=== PATIENT | female | born 1965 | race Caucasian/White ===

== ENCOUNTER 2017-02-13 07:56 | Inpatient (IN) | payer OTHER ==
--- NOTE | ~2017-02-13 | OR ---
Unit #: [id number] #: [id number] Patient: ELVIRA GARVIN [id number] [address] [address] [id number] I MR#: [id number] NAME: ELVIRA GARVIN ROOM: 331 Date of Procedure: 02/13/2017 Admission Date: 02/13/2017 Surgeon: Arnie Marie M.D. : 1965 Attending Physician: Mike Arnold M.D. OPERATIVE REPORT PROCEDURE PERFORMED Esophagogastroduodenoscopy with biopsy. INDICATIONS The patient presented with hematemesis, anemia of acute blood loss. MEDICATIONS Monitored anesthesia. POSTOPERATIVE FINDINGS 1. Severe ulcerative esophagitis . 2. Small gastric cardia ulcer. 3. Biopsies taken in the antrum and body to look for H pylori. 4. Normal duodenum and distal duodenum. PLAN Continue PPI therapy. Watch for . DESCRIPTION OF PROCEDURE The patient was explained of the procedure, risks, and benefits along with the risks and benefits of anesthesia. She was brought to the endoscopy room. Propofol anesthesia was given. Bite block was placed. The scope was passed down the mouth into the esophagus, stomach, duodenum, and distal duodenum. Findings as described. Biopsies taken. Gently, I pulled it out of the patient's mouth. She tolerated it well. No major complications were seen. Dictated by... Charly Kowalski/beverly TD: 03/15/2017 02:19 JOB #: [id number] Unit #: [id number] #: [id number] Patient: ELVIRA GARVIN OPERATIVE REPORT Page 1 of 1 X Arnie Marie MD X PROCEDURE OPERATIVE NOTE
--- NOTE | ~2017-02-13 | EKG ---
PATIENT: ELVIRA GARVIN UNIT #: [id number] Ventricular Rate: 142 BPM Atrial Rate: 142 BPM P-R Interval: 112 ms QRS Duration: 68 ms Q-T Interval: 334 ms QTC Calculation(Bezet): 513 ms Calculated R [place]: 82 degrees Calculated T [place]: 70 degrees Diagnosis Line: Sinus tachycardia Diagnosis Line: Otherwise normal ECG Diagnosis Line: When compared with ECG of 13-DEC-2016 11:40, Diagnosis Line: No significant change was found Diagnosis Line: Confirmed by ARIS ORDAZ MD ([id number]) on Diagnosis Line: 02/13/2017 11:28:34 AM INTERPRETING MD: SUSHMA PAUL
--- NOTE | ~2017-02-13 | CR72 ---
[facility] A Service of [facility] RADIOLOGY TEXT RESULTS PATIENT: ELVIRA GARVIN LOCATION: [facility] 331-01 : [birth year] UNIT #: [id number] AGE: [address]: Alexa Singh MD SEX: F ORDER DR: [id number] [facility] [address] [facility]. [place], [place] [address] [id number] I MR#: [id number] #: [id number] NAME: ELVIRA GARVIN : 1965 SEX: F STUDY DATE/TIME: 02/13/2017 14:50 UNIT: [address] ROOM: [facility] STUDY DESCRIPTION: CR Chest Single View Portable Attending Physician: Alexa Singh M.D. Ordering Physician: Alpesh Noyola M.D. Primary Care Physician: No Primary Care Physician MEDICAL IMAGING REPORT This report is preliminary unless electronic signature is present EXAM Single view chest. DATE OF EXAM 02/13/2017 INDICATION Shortness of air and alcohol withdraw. Coffee-grounds emesis for 1 day. Positive smoking history. FINDINGS Single portable AP view of the chest compared to 12/13/2016. Heart and mediastinal contours normal. Lungs are clear. IMPRESSION Normal chest radiograph. Dictated by... Darren Montero M.D. THIS IS AN ELECTRONICALLY VERIFIED REPORT Darren Montero M.D. at 02/14/2017 8:38 AM POORNIMA/tatyana TD: 02/13/2017 21:25 JOB #: [id number] MEDICAL IMAGING REPORT COPY
--- NOTE | ~2017-02-13 | HP ---
Unit #: [id number] #: [id number] Patient: ELVIRA GARVIN [id number] [address] [address] [id number] I MR#: [id number] NAME: ELVIRA GARVIN ROOM: 14890 Age: 51 Sex: F Admission Date: 02/13/2017 : 1965 Attending Physician: Alexa Singh M.D. Primary Care Physician: No Primary Care Physician HISTORY AND PHYSICAL CHIEF COMPLAINT Alcohol withdrawal and coffee-ground emesis. HISTORY OF PRESENT ILLNESS The patient is a 51-year-old female with past medical history of alcohol abuse, pancreatitis, GERD, bipolar disorder who presented to the emergency department for evaluation of the above. History is obtained from discussion with ER staff as well as chart review due to the patient having just received 2 mg of Ativan and being unable to add much to the history. Apparently, the patient stopped drinking "cold turkey" about three days ago. She has since had nausea, vomiting with coffee-ground emesis per EMS. At the time of my evaluation, the patient does report abdominal pain. She describes it as "achy." It is in the upper abdomen. There are no exacerbating or alleviating factors. She denies any chest pain, no fever. Upon arrival in the emergency department, the patient's pulse and blood pressure were 149 and 124/74 respectively. She was noted to be somewhat anxious. She was given a total of 4 mg of Ativan as well as 3 L of normal saline and 8 mg of Zofran. She also received 40 mg of Protonix. Laboratory is notable for sodium of 125, BUN and creatinine 66 and 1.7 respectively. Hemoglobin is 11.9. She is being admitted to [facility] for evaluation and further treatment. PAST MEDICAL HISTORY 1. Admission to [facility], December 13 through December 18, 2016 for alcohol withdrawal and GI bleed. She underwent EGD on December 18, 2016 that showed severe ulcerative esophagitis circumferentially with no varices. 2. Pancreatitis. 3. GERD. 4. Bipolar disorder. PAST SURGICAL HISTORY 1. EGD. 2. Hip replacement. SOCIAL HISTORY The patient drinks a pint daily. Her last drink was three days prior to admission. She is a smoker, half pack cigarettes daily. She denies illicit drug use. FAMILY HISTORY Unit #: [id number] #: [id number] Patient: ELVIRA GARVIN Currently unobtainable from the patient due to her being somewhat lethargic. ALLERGIES No known allergies. HOME MEDICATIONS 1. Paxil. 2. Buspirone. 3. Gabapentin. 4. Prilosec. Home medications will need to be reviewed and verified. REVIEW OF SYSTEMS A complete review of systems is negative except as indicated in the HPI. DIAGNOSTIC STUDIES LABORATORY: Complete blood count notable for white blood cell count of 14.1, hemoglobin and hematocrit 11.9 and 36.8 respectively. Comprehensive metabolic panel notable for sodium of 125, chloride 71, bicarbonate 33, glucose 159, BUN and creatinine 66 and 1.7 respectively. AST 69. Lipase 12, amylase 19. INR 1. CARDIOVASCULAR: EKG shows sinus tachycardia with rate of 142 beats per minute. PHYSICAL EXAMINATION VITAL SIGNS: Temperature is 99.6, pulse 149, respirations 17, blood pressure 124/74, oxygen saturation is 94% on room air. GENERAL: The patient is a female who is lethargic but opens eyes to voice. HEENT: The head is atraumatic. Mucous membranes are dry. NECK: Supple. Trachea is midline. CARDIOVASCULAR: Tachycardic in the one teens. LUNGS: Clear to auscultation bilaterally with no increased work of breathing. ABDOMEN: Soft, nontender with bowel sounds present in all four quadrants. EXTREMITIES: Nontender with no pedal edema. NEUROLOGIC: The patient is lethargic. She opens eyes to physical stimuli. She is currently oriented to person only; however, initially prior to Ativan, she was oriented x3. She is moving all extremities. PSYCHIATRIC: The patient is cooperative. SKIN: Skin of examined areas is warm. ASSESSMENT The patient is a 51-year-old female: 1. Alcohol withdrawal: The patient received 4 mg of Ativan in the emergency department. 2. Hyponatremia, likely secondary to alcohol. The patient's sodium has been as low as 124 on December 14, 2016. It is 125 today. 3. Acute kidney injury: The patient's creatinine has been as high as 2 on December 13, 2016. It is 1.7 today and was 0.6 on December 16, 2016. 4. Nausea and vomiting with coffee-ground emesis per EMS. Hemoglobin is 11.9. The patient did undergo esophagogastroduodenoscopy on December 18, 2016, that showed esophagitis but no varices. She received 40 mg of Protonix in the emergency department. 5. Leukocytosis with no obvious source of infection, although there is Unit #: [id number] #: [id number] Patient: ELVIRA GARVIN not a urinalysis or chest x-ray for review. 6. History of pancreatitis. 7. Gastroesophageal reflux disease. 8. Bipolar disorder. 9. Tobacco abuse. PLAN 1. Admit to intermediate level. 2. NPO until more awake and passes bedside swallow then clear liquids only. 3. Alcohol withdrawal protocol. 4. Librium 25 mg p.o. q.6 hours to start when awake. 5. fleet manager/dispatch and social work consult regarding alcohol abuse. 6. Urine sodium and osmolality. 7. Serum osmolality. 8. Repeat BMP later this afternoon to followup hyponatremia. 9. Chest x-ray for further evaluation of hyponatremia and leukocytosis. 10. Urinalysis with culture and sensitivity. 11. Urine tox screen. 12. Hemoccult stool. 13. Hemoglobin and hematocrit q.6 hours. 14. Protonix. 15. Serial cardiac enzymes. 16. Neuro checks. 17. Repeat labs in the morning. 18. Sequential compression devices for deep venous thrombosis prophylaxis. 19. Additional workup and consultants based on above. Dictated by Charly Reeves TD: 02/13/2017 15:52 JOB #: [id number] HISTORY AND PHYSICAL X Alexa Singh MD X HISTORY AND PHYSICAL
--- NOTE | ~2017-02-13 | DS ---
Unit #: [id number] #: [id number] Patient: ELVIRA GARVIN [id number] [address] [place], [place] [address] [id number] I MR#: [id number] NAME: ELVIRA GARVIN ROOM: 331 Age: 51 Sex: F Admission Date: 02/13/2017 : 1965 Discharge Date: 02/16/2017 Attending Physician: Mike Arnold M.D. DISCHARGE SUMMARY REASON FOR ADMISSION Alcohol withdrawal/coffee-ground emesis. HISTORY OF PRESENT ILLNESS/HOSPITAL COURSE The patient is a 51-year-old female with underlying history of alcohol abuse, pancreatitis, current bipolar disorder, who presented secondary to above. Please see H and P for complete details. In regard to coffee ground emesis, consultation was placed to Dr. Marie of [facility], who followed the patient through her hospital course. Upper GI endoscopy was performed, which did reveal severe ulcerative esophagitis, but there was no Karie-De Leon tear, which was noted. Gastritis was also noted. PPI therapy was recommended at time of discharge. Throughout her hospital course, she has remained otherwise well. We did place her initially on CIWA protocol, which was gradually discontinued and she has been maintained on p.o. Librium. She has exhibited no acute DTs while she was here. Her hemoglobin currently stands at 11.4, which likely is representing her baseline. She does have decreased MCV at 82. H pylori screen was negative. Blood cultures did not show any bacterial growth through hospital stay. Urine culture was also performed that did not yield any bacterial growth as well. From medical standpoint, she is currently stable. She has been tolerating diet well without difficulty. She is ambulatory and she will be discharged home in improved stable condition. She is well aware of the long-term detrimental effects of alcohol. She states that she will try to decrease as an outpatient. Appropriate supportive care was given while she was here. FINAL DISCHARGE DIAGNOSES 1. Emesis likely secondary to acute alcohol intoxication. 2. Ulcerative esophagitis. 3. Alcohol abuse. 4. Hyponatremia on admission, now resolved. 5. Acute kidney injury on admission, now resolved. 6. Iron deficiency anemia. 7. Prior history of pancreatitis likely secondary to alcohol abuse. 8. Prior history of bipolar disorder. 9. Ongoing tobacco abuse. FINAL DISCHARGE MEDICATIONS Unit #: [id number] #: [id number] Patient: ELVIRA GARVIN Paxil 40 mg p.o. daily, Abilify 5 mg p.o. daily, Librium 25 mg p.o. q.6 x5 days, simvastatin 20 mg p.o. q.h.s., multivitamin daily, Protonix 40 mg p.o. daily. DISCHARGE CONDITION Stable. DISCHARGE DISPOSITION Home. PROGNOSIS Long-term prognosis guarded secondary to ongoing alcohol abuse as well as tobacco abuse. Dictated by... Charly Hidalgo/beverly TD: 02/17/2017 00:38 JOB #: [id number] DISCHARGE SUMMARY X Mike Arnold MD X DISCHARGE SUMMARY
[~2017-02-13 07:56] MED LIST: ABILIFY5 MG PO; BUSPAR15 M2 PO; MAG-OXIDE400 MG PO; MINIPRESS1 MG PO; MULTI-VITAMIN1 EAC1 PO; NEURONTIN800 MG PO; OMEPRAZOLE40 M1 PO; PAXIL40 MG PO; ZOCOR20 MG PO
[2017-02-13 08:29] LABS: BASOPHIL% 0.2 % (0-2.5); HEMATOCRIT 36.8 % (35.0-45.0); HEMOGLOBIN 11.9 gm/dL (12.0-16.0); LYMPHOCYTE# 1.3 X10e3 (1.0-3.5); MEAN CELL VOLUME 76.7 FL (83-96); MEAN CORPUSCULAR HEMOGLOBIN 24.8 PG (28-34); MEAN CORPUSCULAR HGB CONC 32.4 g/dL (30-36); MEAN PLATELET VOLUME 8.9 FL (6.5-11.5); MONOCYTE# 0.7 X10e3 (0-1.0); MONOCYTE% 4.9 % (3.0-12.0); NEUTROPHIL# 12.1 X10e3 (1.5-7.1); NEUTROPHIL% 85.9 % (40-75); PLATELET COUNT 232 X10e3 (140-420); RED CELL DISTRIBUTION WIDTH 18.4 % (11.0-15.5); WHITE BLOOD COUNT 14.1 X10e3 (4.0-10.5)
[2017-02-13 08:30] LABS: DIFF IND NO
[2017-02-13 08:56] LABS: ALBUMIN SERUM 4.9 g/dL (3.5-5.0); BILIRUBIN, DIRECT 0.2 mg/dL (0.0-0.2); BILIRUBIN,TOTAL 1.2 mg/dL (0.2-2.0); BUN/CREATININE RATIO 38.82; CALCIUM SERUM 8.9 mg/dL (8.4-10.2); CREATININE SERUM 1.7 mg/dL (0.6-1.4); POTASSIUM 3.7 mmol/L (3.5-5.1); PROTEIN TOTAL SERUM 8.7 g/dL (6.0-8.3)
[2017-02-13 09:01] LABS: PARTIAL THROMBOPLASTIN TIME 20.6 SECONDS (23.5-31.3); PROTHROMBIN TIME (PATIENT) 10.1 SECONDS (9.6-11.5)
[2017-02-13] MEDS ORDERED: BUSPAR30 MG PO (15:11)
[2017-02-13] MEDS ORDERED: NEURONTIN800 MG PO (15:12)
[2017-02-13] MEDS ORDERED: PAROXETINE HCL20 MG PO (15:13)
[2017-02-13] MEDS ORDERED: DESYREL50 MG PO (15:14)
[2017-02-13] MEDS ORDERED: SIMVASTATIN20 MG PO (15:14)
[2017-02-13] MEDS ORDERED: MINIPRESS1 MG PO (15:15)
[2017-02-13 15:52] LABS: MAGNESIUM 1.7 mg/dL (1.6-3.0)
[2017-02-13 15:54] LABS: THYROID STIMULATING HORMONE 1.12 uIU/ml (0.34-5.60)
[2017-02-13 16:01] LABS: %MB 1.6 % (0.0-4.0); FREE THYROXIN (T4) 0.95 ng/dL (0.58-1.64); MB 12.4 ng/ml
[2017-02-13 16:02] LABS: URINE SOURCE CLEAN CATCH
[2017-02-13 16:06] LABS: URINE APPEARANCE CLEAR; URINE BILIRUBIN NEG (NEG); URINE BLOOD TRACE (NEG); URINE COLOR YELLOW; URINE GLUCOSE NEG (NEG); URINE KETONE 1+ (NEG); URINE LEUKOCYTE ESTERASE 1+ (NEG); URINE NITRATE NEG (NEG); URINE PROTEIN NEG (NEG); URINE SPECIFIC GRAVITY 1.016 (1.003-1.035); URINE UROBILINOGEN 0.2 MG/DL (NEG)
[2017-02-13 16:09] LABS: CULTURE INDICATED? YES; URINE BACTERIA AUWI NEG (NEGATIVE); URINE SQUAMOUS EPITHELIAL CELL OCC /[HPF]
[2017-02-13 16:39] LABS: AMPHETAMINE NEG (NEG); BARBITURATES NEG (NEG); BENZODIAZEPINES NEG (NEG); COCAINE NEG (NEG); MARIJUANA NEG (NEG); OPIATES NEG (NEG); TRICYCLIC ANTIDEPRESSANTS NEG (NEG); U METHADONE NEG (NEG)
[2017-02-13 19:20] LABS: HEMATOCRIT 32.2 % (35.0-45.0)
[2017-02-13 19:21] LABS: HEMOGLOBIN 9.9 gm/dL (12.0-16.0)
[2017-02-13 19:36] LABS: BUN/CREATININE RATIO 36.36; CALCIUM SERUM 7.2 mg/dL (8.4-10.2); CREATININE SERUM 1.1 mg/dL (0.6-1.4); GLOM FILT RATE Estimated 56.1 mL/min (>60); POTASSIUM 3.3 mmol/L (3.5-5.1)
[2017-02-13 19:59] LABS: %MB 1.5 % (0.0-4.0); MB 10.2 ng/ml
[2017-02-14 06:50] LABS: HEMATOCRIT 25.4 % (35.0-45.0); HEMOGLOBIN 8.1 gm/dL (12.0-16.0)
[2017-02-14 07:56] LABS: %MB 0.9 % (0.0-4.0); MB 3.9 ng/ml
[2017-02-14 14:14] LABS: HEMATOCRIT 23.7 % (35.0-45.0); HEMOGLOBIN 7.5 gm/dL (12.0-16.0)
[2017-02-15 03:36] LABS: HEMATOCRIT 32.8 % (35.0-45.0)
[2017-02-15 03:37] LABS: HEMOGLOBIN 10.5 gm/dL (12.0-16.0)
[2017-02-15 04:03] LABS: ALBUMIN SERUM 3.3 g/dL (3.5-5.0); ALKALINE PHOSPHATASE 53 U/L (32-92); ALT (SGPT) 23 U/L (10-40); AST (SGOT) 47 U/L (10-42); BILIRUBIN,TOTAL 1.2 mg/dL (0.2-2.0); BLOOD UREA NITROGEN 7 mg/dL (9-23); CARBON DIOXIDE 28 mmol/L (22-31); CHLORIDE 101 mmol/L (100-111); CREATININE SERUM 0.5 mg/dL (0.6-1.4); GLOM FILT RATE Estimated ABOVE60 mL/min (>60); GLUCOSE FASTING 105 mg/dL (70-110); PROTEIN TOTAL SERUM 5.9 g/dL (6.0-8.3); SODIUM 134 mmol/L (135-145)
[2017-02-15 04:06] LABS: POTASSIUM 2.9 mmol/L (3.5-5.1)
[2017-02-15 08:34] LABS: HEMATOCRIT 32.9 % (35.0-45.0); HEMOGLOBIN 10.4 gm/dL (12.0-16.0)
[2017-02-15 14:27] LABS: HEMATOCRIT 34.4 % (35.0-45.0); HEMOGLOBIN 10.9 gm/dL (12.0-16.0)
[2017-02-15 18:35] LABS: HEMATOCRIT 36.8 % (35.0-45.0); HEMOGLOBIN 11.4 gm/dL (12.0-16.0)
[2017-02-15] MEDS ORDERED: PAXIL40 MG PO (22:58)
[2017-02-15] MEDS ORDERED: ABILIFY5 MG PO (22:59)
[2017-02-16 07:52] LABS: HEMOGLOBIN 11.8 gm/dL (12.0-16.0); MEAN CELL VOLUME 82.4 FL (83-96); MEAN CORPUSCULAR HEMOGLOBIN 26.2 PG (28-34); MEAN CORPUSCULAR HGB CONC 31.8 g/dL (30-36); MEAN PLATELET VOLUME 9.5 FL (6.5-11.5); RED BLOOD COUNT 4.5 X10e (3.90-5.30); RED CELL DISTRIBUTION WIDTH 17.5 % (11.0-15.5); WHITE BLOOD COUNT 6.5 X10e3 (4.0-10.5)
[2017-02-16 08:07] LABS: ALBUMIN SERUM 3.5 g/dL (3.5-5.0); ALKALINE PHOSPHATASE 60 U/L (32-92); ALT (SGPT) 25 U/L (10-40); AST (SGOT) 39 U/L (10-42); BILIRUBIN,TOTAL 0.6 mg/dL (0.2-2.0); BLOOD UREA NITROGEN 8 mg/dL (9-23); BUN/CREATININE RATIO 11.42; CALCIUM SERUM 9.2 mg/dL (8.4-10.2); CARBON DIOXIDE 28 mmol/L (22-31); CHLORIDE 105 mmol/L (100-111); CREATININE SERUM 0.7 mg/dL (0.6-1.4); GLOM FILT RATE Estimated ABOVE60 mL/min (>60); GLUCOSE FASTING 103 mg/dL (70-110); MAGNESIUM 1.5 mg/dL (1.6-3.0); POTASSIUM 3.7 mmol/L (3.5-5.1); PROTEIN TOTAL SERUM 6.6 g/dL (6.0-8.3); SODIUM 141 mmol/L (135-145)
[2017-02-16] MEDS ORDERED: MULTI-DAY VITAM1 TAB PO (12:41)
[2017-02-16] MEDS ORDERED: PROTONIX PO (12:41)
[2017-02-16] MEDS ORDERED: LIBRIUM25 M1 PO (12:42)
== END 2017-02-16 16:50 | disposition home or self-care (01) | DRG 381 ==
LOC: CED 07:56 → SEDOF 13:20 → CEDOF 13:36 → C3A PCU 16:29
PROVIDERS: Emergency Medicine; Family Medicine; Internal Medicine
PROC: 0DB68ZX Excision of Stomach, Via Natural or Artificial Opening Endoscopic, Diagnostic (ICD-10-PCS; 2017-02-13)
PROC: 0DB78ZX Excision of Stomach, Pylorus, Via Natural or Artificial Opening Endoscopic, Diagnostic (ICD-10-PCS; 2017-02-13)
PROC: 30233N1 Transfusion of Nonautologous Red Blood Cells into Peripheral Vein, Percutaneous Approach (ICD-10-PCS; principal; 2017-02-14)
DX: K22.10 Ulcer of esophagus without bleeding (principal); F10.239 Alcohol dependence with withdrawal, unspecified; N17.9 Acute kidney failure, unspecified; D62 Acute posthemorrhagic anemia; E87.1 Hypo-osmolality and hyponatremia; F10.229 Alcohol dependence with intoxication, unspecified; D50.9 Iron deficiency anemia, unspecified; K25.9 Gastric ulcer, unspecified as acute or chronic, without hemorrhage or perforation; F31.9 Bipolar disorder, unspecified; R11.10 Vomiting, unspecified; K29.70 Gastritis, unspecified, without bleeding; Z96.649 Presence of unspecified artificial hip joint; K21.9 Gastro-esophageal reflux disease without esophagitis; F17.200 Nicotine dependence, unspecified, uncomplicated
CPT/HCPCS: 36415; 43753; 71010; 80048; 80053; 80076; 80307; 81003; 82140; 82150; 82550; 82553; 83690; 83735; 83930; 84132; 84439; 84443; 84484; 85014; 85018; 85025; 85027; 85610; 85730; 86592; 86677; 86850; 86900; 86901; 86923; 87040; 87086; 88305; 88312; 93005; 96365; 96375; 96376; 99285; C9113; J2060; J2405; J3370; J3411; J3475; J7042; P9016

== ENCOUNTER 2017-03-21 20:56 | Inpatient (IN) | payer OTHER ==
--- NOTE | ~2017-03-21 | DS ---
Unit #: [id number] #: [id number] Patient: ELVIRA GARVIN [id number] [address] [place], [place] [address] [id number] I MR#: [id number] NAME: ELVIRA GARVIN ROOM: 555 Age: 51 Sex: F Admission Date: 03/22/2017 : 1965 Discharge Date: 03/24/2017 Attending Physician: Mike Arnold M.D. DISCHARGE SUMMARY REASON FOR ADMISSION Alcohol withdrawal/hypokalemia. HISTORY OF PRESENT ILLNESS/HOSPITAL COURSE Patient is a 51-year-old female who recently moved to [place] several months ago who presented secondary to alcohol withdrawal. She states that in the past she has gone through similar symptoms. She became quite tremulous and diaphoretic, as well as had associated nausea and vomiting at home. While she was evaluated in the emergency room, she was noted to be tachycardic and hypertensive. Potassium was noted to be 2.6, as well as she did have decreased magnesium level. She was last admitted to our particular hospital in January 2017 secondary to alcohol withdrawal, as well as coffee-ground emesis. She did not follow up with a primary care physician after discharge. Through this hospital course, she was placed on telemetry floor. A consultation was placed to psychiatry services. The patient was advised to follow up as an outpatient at [facility]. Her electrolytes were appropriately replaced. She was placed on routine protocol. She did not have any acute events while she was here. At the present time, she is comfortable. She exhibits no withdrawal symptoms currently. She has received some of her routine medications, and her medications have been adjusted. Please see below. At the time of discharge, she will be given a prescription for Librium t.i.d. x5 additional days. She will follow up with Dr. Daisy Heath as an outpatient in seven to 10 days. FINAL DISCHARGE DIAGNOSES 1. Alcohol abuse. 2. Prior history of alcohol withdrawal. 3. Hypokalemia. 4. Decreased magnesium. 5. Prior history of alcohol-induced pancreatitis. 6. Prior history of gastrointestinal bleed. 7. Ulcerative esophagitis. 8. Gastritis. 9. Gastroesophageal reflux disease. 10. Bipolar disorder. Unit #: [id number] #: [id number] Patient: ELVIRA GARVIN 11. Osteoarthritis. FINAL DISCHARGE MEDICATIONS 1. Paxil 40 mg p.o. daily. 2. Trazodone 50 mg p.o. at bedtime. 3. BuSpar 15 mg p.o. t.i.d. 4. Librium 25 mg p.o. q.8 x5 days. 5. Multivitamin daily. 6. Omeprazole 40 mg p.o. daily. DISCHARGE CONDITION Stable. DISCHARGE DISPOSITION Home. Dictated by... Charly Hidalgo/valdo TD: 03/24/2017 21:43 JOB #: [id number] DISCHARGE SUMMARY Page 1 of 1 X Mike Arnold MD X DISCHARGE SUMMARY
--- NOTE | ~2017-03-21 | HP ---
Unit #: [id number] #: [id number] Patient: ELVIRA GARVIN [id number] [address] [place], [place] [address] [id number] I MR#: [id number] NAME: ELVIRA GARVIN ROOM: 47112 Age: 51 Sex: F Admission Date: 03/22/2017 : 1965 Attending Physician: Janell Abraham M.D. Primary Care Physician: No Primary Care Physician HISTORY AND PHYSICAL CHIEF COMPLAINT Alcohol withdrawal, hypokalemia. HISTORY This 51-year-old female with history of alcohol abuse, esophagitis, was admitted for alcohol withdrawal and hypokalemia. The patient drinks a pint or more of liquor on a daily basis. Two days ago she decided that she wanted to start tapering down her alcohol consumption, and hopefully stop drinking. However, yesterday she became quite tremulous, diaphoretic, with nausea and vomiting despite taking a drink of alcohol in the afternoon. She presented to this emergency department last evening tachycardic and hypertensive, and active withdrawal. Labs are notable for potassium of 2.6. She was bolused with 2 L of saline, given Ativan, Zofran, Pepcid, potassium and Macrobid for a questionable UTI. The patient denies any urinary symptoms with the above. The patient does follow with the alcohol anonymous. She was last admitted to this facility 02/13/2017 for alcohol withdrawal, coffee ground emesis and acute kidney injury. She states that she began drinking a week after her discharged. PAST MEDICAL HISTORY 1. Alcohol abuse with history of alcohol withdrawal. 2. History of alcohol induced pancreatitis. 3. GI bleeding in the past with last EGD revealing severe ulcerative esophagitis and gastritis. 4. GERD. 5. Bipolar disorder. 6. DJD requiring right hip replacement. ALLERGIES No known drug allergies. HOME MEDICATIONS Paxil 40 mg daily; BuSpar 15 mg t.i.d.; possibly Neurontin 600 mg t.i.d.; omeprazole 40 mg daily. FAMILY HISTORY Notable for alcohol abuse. SOCIAL HISTORY The patient lives with her boyfriend. She smokes 1/2 pack per day of tobacco. Does not use illicit drugs. She drinks at least a pint of alcohol on a daily basis. Unit #: [id number] #: [id number] Patient: ELVIRA GARVIN REVIEW OF SYSTEMS Notable for diaphoresis, nausea, vomiting, palpitations, shakiness, alcohol abuse, esophagitis, bipolar disorder, DJD, and above mentioned procedures. All other systems were reviewed and are negative. PHYSICAL EXAMINATION GENERAL: Diuretic 51-year-old female who is somewhat tremulous. VITAL SIGNS: Temperature 99.3, pulse 136, respirations 13, blood pressure 156/117 initially, which is now improved. O2 saturations 94% on room air. HEENT: Eyes - PERRLA. Extraocular muscles are intact. Pharynx is benign. NECK: Supple without adenopathy or thyromegaly. CHEST: A few rhonchi are noted. CARDIAC: Tachy S1 and S2 without murmur. ABDOMEN: Bowel sounds are present. No hepatosplenomegaly, tenderness, or masses. EXTREMITIES: Without edema. Pedal pulses are present. NEUROLOGIC: Patient is mildly somnolent, but easily arousable. Cranial nerves are intact. She has equal strength throughout, she is tremulous on exam. DIAGNOSTIC STUDIES ADMISSION LABS: Hematocrit is 44.7, white blood count 11, normal platelet count. SMA 12 - sodium 127, potassium 2.6, protein 8.7, AST 96, ALT 60, normal CPK. Alcohol was 43. Cardiac markers negative. Urinalysis shows 25 to 50 red cells, 10 to 25 white cells, 4+ bacteria but many squamous epithelial cells making this a poor specimen. Urine tox screen positive for benzos. IMAGING STUDIES: Chest x-ray - no acute disease. ASSESSMENT 1. Alcohol abuse with alcohol withdrawal after patient tried to decrease her alcohol consumption. 2. Hypokalemia and hyponatremia secondary to alcohol abuse and nausea and vomiting. 3. Bipolar disorder. 4. Tobacco abuse. 5. History of esophagitis. 6. Pyuria, which could be UTI versus contamination. It was a poor specimen. PLANS 1. IV fluids. 2. Replace potassium and check magnesium. 3. Vitamins and benzos. 4. SCDs for DVT prophylaxis. 5. Recollect urinalysis. Patient was given one dose of Macrobid in the ER. Dictated by Jaenll Abraham M.D. AML/ts Unit #: [id number] #: [id number] Patient: ELVIRA GARVIN TD: 03/22/2017 05:52 JOB #: [id number] HISTORY AND PHYSICAL Page 1 of 1 X Janell Abraham MD X HISTORY AND PHYSICAL
--- NOTE | ~2017-03-21 | CO ---
Unit #: [id number] #: [id number] Patient: ELVIRA LINARES [id number] [address] [address] [id number] I MR#: [id number] NAME: ELVIRA LINARES ROOM: 555 Age: 51 Sex: F Admission Date: 03/22/2017 : 1965 Attending Physician: Mike Arnold M.D. Consultation Date: 03/23/2017 CONSULTATION REPORT REASON FOR CONSULTATION Alcohol abuse. HISTORY OF PRESENT ILLNESS Ms. Elvira Linares is a 51-year-old female, seen in room 555, bed 1 on 03/23/2017 at [facility]. The patient reported she was admitted due to excessive drinking. The patient was admitted on 03/22/2017 with symptoms of esophagitis, alcohol withdrawal, hypokalemia. The patient denied any suicidal or homicidal ideation. Denied any psychotic symptom. Reported she wanted to quit drinking. Reported symptoms such as tremors, diaphoresis, nausea, vomiting. The patient was also tachycardia, hypertensive, and her potassium was 2.6. PAST PSYCHIATRIC HISTORY Remarkable for history of alcohol abuse. No history of any depression, but according to the intake report, history of bipolar disorder. No known history of any suicide attempt. MEDICAL HISTORY Alcohol abuse, alcohol withdrawal, alcohol-induced pancreatitis, GI bleeding in the past, GERD, and degenerative joint disease. MEDICATIONS The patient is on Paxil 40 mg daily, BuSpar 15 mg t.i.d., Neurontin 600 mg t.i.d., and omeprazole 40 mg daily. FAMILY HISTORY AND SOCIAL HISTORY The patient lives with a boyfriend, good support system. Denied any use of any illicit drugs. No history of any abuse. REVIEW OF SYSTEMS Complete review of systems is unremarkable except as mentioned above. MENTAL STATUS EXAMINATION Vital signs; temperature 99.3, pulse 134, respirations 14, blood pressure 150/116, oxygen saturation 94%. General appearance, the patient dressed casually in hospital attire, lying comfortably. Attention span and concentration, fair. Speech, regular rate. Oriented in time, place, and person. Mood and affect, sad and dysphoric. Thought process, coherent. Thought content, the patient denied any thoughts of harming self or others, but denied any suicidal or homicidal ideation. Denied any psychotic symptom. Recent and remote memory, fair. Language, intact. Fund of knowledge, fair. Insight and judgment, fair to slightly impaired. Unit #: [id number] #: [id number] Patient: ELVIRA LINARES DIAGNOSES Psychiatric: Alcohol use disorder, severe, F10.20; major depressive disorder, recurrent, F33.2. Secondary diagnosis: Deferred. Medical diagnosis: Please refer to H and P. Stressors: Psychosocial stressors. ASSESSMENT AND PLAN 1. Supportive psychotherapy and psychoeducation provided to the patient. 2. Educated about benefits and side effects of medication and course and prognosis of illness. Advised the [facility]. If needed, consider adjusting medication. Continue with current medication for depression and anxiety. Please feel free to call if any questions, telephone #[phone]. Dictated by... Charly Murphy/beverly TD: 03/24/2017 23:58 JOB #: [id number] CONSULTATION REPORT Page 1 of 1 X Mckay Bliss MD X CONSULTATION REPORT
--- NOTE | ~2017-03-21 | CR72 ---
[facility] A Service of [facility] & [facility] RADIOLOGY TEXT RESULTS PATIENT: ELVIRA GARVIN LOCATION: [facility] : [birth year] UNIT #: [id number] AGE: [address]: Jessie Orozco MD SEX: F ORDER DR: [id number] [facility] [address] [place], [place] [address] [id number] MR#: [id number] #: [id number] NAME: ELVIRA GARVIN : 1965 SEX: F STUDY DATE/TIME: 03/21/2017 20:15 UNIT: [facility] ROOM: STUDY DESCRIPTION: CR Chest Single View Portable Attending Physician: Jessie Orozco M.D. Ordering Physician: Jessie Orozco M.D. Primary Care Physician: No Primary Care Physician MEDICAL IMAGING REPORT This report is preliminary unless electronic signature is present EXAM Portable chest. HISTORY Cough, vomiting and hypoxia with shortness of breath beginning today. TECHNIQUE Single view chest was obtained and compared to 02/13/2017. FINDINGS A single AP portable view of the chest shows both lungs to be clear. The heart is normal in size. The mediastinal contour is normal. No significant bone abnormalities are seen. IMPRESSION Normal single view chest. Dictated by... Olman Andrade M.D. THIS IS AN ELECTRONICALLY VERIFIED REPORT Olman Andrade M.D. at 03/21/2017 10:18 PM HUY/tatyana TD: 03/21/2017 22:09 JOB #: [id number] MEDICAL IMAGING REPORT Page 1 of 1 COPY
--- NOTE | ~2017-03-21 | EKG ---
PATIENT: ELVIRA GARVIN UNIT #: [id number] Ventricular Rate: 133 BPM Atrial Rate: 133 BPM P-R Interval: 136 ms QRS Duration: 80 ms Q-T Interval: 378 ms QTC Calculation(Bezet): 562 ms Calculated R [place]: 100 degrees Calculated T [place]: 122 degrees Diagnosis Line: Sinus tachycardia Diagnosis Line: Rightward axis Diagnosis Line: Nonspecific ST abnormality Diagnosis Line: Abnormal ECG Diagnosis Line: When compared with ECG of 21-MAR-2017 20:18, Diagnosis Line: (unconfirmed) Diagnosis Line: No significant change was found Diagnosis Line: Confirmed by SANA ANDRES MD ([id number]) on Diagnosis Line: 03/21/2017 9:41:59 PM INTERPRETING MD: ERNA
[2017-03-21 20:38] LABS: BASOPHIL% 0.3 % (0-2.5); EOSINOPHIL% 0.1 % (0.0-7.0); HEMATOCRIT 44.7 % (35.0-45.0); HEMOGLOBIN 14.3 gm/dL (12.0-16.0); LYMPHOCYTE# 1.5 X10e3 (1.0-3.5); LYMPHOCYTE% 13.2 % (17.0-45.0); MEAN CELL VOLUME 81.8 FL (83-96); MEAN CORPUSCULAR HEMOGLOBIN 26.2 PG (28-34); MEAN CORPUSCULAR HGB CONC 32.1 g/dL (30-36); MEAN PLATELET VOLUME 9.3 FL (6.5-11.5); MONOCYTE# 0.7 X10e3 (0-1.0); MONOCYTE% 6.4 % (3.0-12.0); NEUTROPHIL# 8.8 X10e3 (1.5-7.1); PLATELET COUNT 165 X10e3 (140-420); RED BLOOD COUNT 5.46 X10e (3.90-5.30); RED CELL DISTRIBUTION WIDTH 18.5 % (11.0-15.5)
[2017-03-21 20:39] LABS: DIFF IND NO
[~2017-03-21 20:56] MED LIST changes: +BUSPAR30 MG PO; +DESYREL50 MG PO; +LIBRIUM25 M1 PO; +MULTI-DAY VITAM1 TAB PO; +PAROXETINE HCL20 MG PO; +PROTONIX PO; +SIMVASTATIN20 MG PO
[2017-03-21 21:05] LABS: POC - CKMB <1.0 ng/mL (0.0-7.9); POC - TROPONIN <0.05 ng/mL (<=0.05)
[2017-03-21 21:11] LABS: ALBUMIN SERUM 4.8 g/dL (3.5-5.0); BILIRUBIN, DIRECT 0.2 mg/dL (0.0-0.2); BILIRUBIN,INDIRECT 1.4 mg/dL (0.0-0.9); BILIRUBIN,TOTAL 1.6 mg/dL (0.2-2.0); BUN/CREATININE RATIO 12.5; CREATININE SERUM 0.8 mg/dL (0.6-1.4); GLOM FILT RATE Estimated 86.6 mL/min (>60); PROTEIN TOTAL SERUM 8.7 g/dL (6.0-8.3)
[2017-03-21 21:12] LABS: POTASSIUM 2.6 mmol/L (3.5-5.1)
[2017-03-21 22:45] LABS: POC - CKMB 1.4 ng/mL (0.0-7.9); POC - TROPONIN <0.05 ng/mL (<=0.05)
[2017-03-21 22:54] LABS: URINE SOURCE CLEAN CATCH
[2017-03-21 22:59] LABS: URINE APPEARANCE TURBID; URINE BILIRUBIN NEG (NEG); URINE BLOOD 1+ (NEG); URINE COLOR YELLOW; URINE GLUCOSE NEG (NEG); URINE KETONE 3+ (NEG); URINE LEUKOCYTE ESTERASE 1+ (NEG); URINE NITRATE NEG (NEG); URINE PROTEIN 1+ (NEG); URINE SPECIFIC GRAVITY 1.019 (1.003-1.035)
[2017-03-21 23:02] LABS: CULTURE INDICATED? YES; URBCS1 AUWI 25-50 /[HPF] (0-2); URINE BACTERIA AUWI 4+ (NEGATIVE); URINE SQUAMOUS EPITHELIAL CELL MANY /[HPF]
[2017-03-21] MEDS ORDERED: PAXIL40 MG PO (23:22)
[2017-03-21] MEDS ORDERED: BUSPAR15 M2 PO (23:22)
[2017-03-21 23:23] LABS: AMPHETAMINE NEG (NEG); BARBITURATES NEG (NEG); BENZODIAZEPINES POS (NEG); COCAINE NEG (NEG); MARIJUANA NEG (NEG); OPIATES NEG (NEG); TRICYCLIC ANTIDEPRESSANTS NEG (NEG); U METHADONE NEG (NEG)
[2017-03-21] MEDS ORDERED: OMEPRAZOLE40 M1 PO (23:23)
[2017-03-21] MEDS ORDERED: GABAPENTIN300 M2 PO (23:23)
[2017-03-22 08:34] LABS: BASOPHIL% 0.2 % (0-2.5); EOSINOPHIL# 0.1 X10e3 (0-0.7); EOSINOPHIL% 1.5 % (0.0-7.0); HEMATOCRIT 37.7 % (35.0-45.0); LYMPHOCYTE# 1.8 X10e3 (1.0-3.5); LYMPHOCYTE% 27.3 % (17.0-45.0); MEAN CELL VOLUME 83.4 FL (83-96); MEAN CORPUSCULAR HEMOGLOBIN 26.4 PG (28-34); MEAN CORPUSCULAR HGB CONC 31.6 g/dL (30-36); MEAN PLATELET VOLUME 9.7 FL (6.5-11.5); MONOCYTE# 0.6 X10e3 (0-1.0); MONOCYTE% 8.5 % (3.0-12.0); NEUTROPHIL# 4.2 X10e3 (1.5-7.1); NEUTROPHIL% 62.5 % (40-75); PLATELET COUNT 111 X10e3 (140-420); RED BLOOD COUNT 4.52 X10e (3.90-5.30); RED CELL DISTRIBUTION WIDTH 18.1 % (11.0-15.5); WHITE BLOOD COUNT 6.8 X10e3 (4.0-10.5)
[2017-03-22 08:35] LABS: HEMOGLOBIN 11.9 gm/dL (12.0-16.0)
[2017-03-22 08:36] LABS: DIFF IND NO
[2017-03-22 09:43] LABS: BUN/CREATININE RATIO 12.85; CREATININE SERUM 0.7 mg/dL (0.6-1.4); GLOM FILT RATE Estimated 101.7 mL/min (>60); POTASSIUM 3.7 mmol/L (3.5-5.1)
[2017-03-23 06:26] LABS: BASOPHIL% 0.7 % (0-2.5); EOSINOPHIL# 0.2 X10e3 (0-0.7); EOSINOPHIL% 5.3 % (0.0-7.0); HEMATOCRIT 37.2 % (35.0-45.0); HEMOGLOBIN 11.6 gm/dL (12.0-16.0); LYMPHOCYTE% 45.1 % (17.0-45.0); MEAN CELL VOLUME 84.4 FL (83-96); MEAN CORPUSCULAR HEMOGLOBIN 26.3 PG (28-34); MEAN CORPUSCULAR HGB CONC 31.2 g/dL (30-36); MEAN PLATELET VOLUME 10.7 FL (6.5-11.5); MONOCYTE# 0.3 X10e3 (0-1.0); MONOCYTE% 7.8 % (3.0-12.0); NEUTROPHIL# 1.8 X10e3 (1.5-7.1); NEUTROPHIL% 41.1 % (40-75); PLATELET COUNT 101 X10e3 (140-420); RED BLOOD COUNT 4.41 X10e (3.90-5.30); RED CELL DISTRIBUTION WIDTH 18.7 % (11.0-15.5); WHITE BLOOD COUNT 4.4 X10e3 (4.0-10.5)
[2017-03-23 06:27] LABS: DIFF IND NO
[2017-03-23 07:24] LABS: CALCIUM SERUM 8.8 mg/dL (8.4-10.2); CREATININE SERUM 0.5 mg/dL (0.6-1.4); GLOM FILT RATE Estimated 113.7 mL/min (>60); POTASSIUM 3.5 mmol/L (3.5-5.1)
[2017-03-24 06:28] LABS: HEMATOCRIT 36.4 % (35.0-45.0); HEMOGLOBIN 11.3 gm/dL (12.0-16.0); MEAN CELL VOLUME 84.9 FL (83-96); MEAN CORPUSCULAR HEMOGLOBIN 26.3 PG (28-34); MEAN CORPUSCULAR HGB CONC 30.9 g/dL (30-36); MEAN PLATELET VOLUME 9.9 FL (6.5-11.5); RED BLOOD COUNT 4.29 X10e (3.90-5.30); RED CELL DISTRIBUTION WIDTH 18.6 % (11.0-15.5); WHITE BLOOD COUNT 3.6 X10e3 (4.0-10.5)
[2017-03-24 07:16] LABS: CREATININE SERUM 0.6 mg/dL (0.6-1.4); POTASSIUM 3.5 mmol/L (3.5-5.1)
[2017-03-24] MEDS ORDERED: DESYREL50 MG PO (10:59)
[2017-03-24] MEDS ORDERED: THERA-TABS M C1 EACH PO (11:03)
[2017-03-24] MEDS ORDERED: LIBRIUM25 MG PO (11:04)
== END 2017-03-24 18:28 | disposition home or self-care (01) | DRG 897 ==
LOC: CED 20:56 → CEDOF 03-22 02:05 → C5B 03-22 12:31
PROVIDERS: Emergency Medicine; Family Medicine; Internal Medicine; Internal Medicine Gastroenterology
DX: F10.230 Alcohol dependence with withdrawal, uncomplicated (principal); F33.9 Major depressive disorder, recurrent, unspecified; E87.1 Hypo-osmolality and hyponatremia; N39.0 Urinary tract infection, site not specified; E87.6 Hypokalemia; R00.0 Tachycardia, unspecified; E83.42 Hypomagnesemia; K29.70 Gastritis, unspecified, without bleeding; K21.9 Gastro-esophageal reflux disease without esophagitis; M19.90 Unspecified osteoarthritis, unspecified site; Z96.641 Presence of right artificial hip joint; F17.210 Nicotine dependence, cigarettes, uncomplicated; Y90.2 Blood alcohol level of 40-59 mg/100 ml
CPT/HCPCS: 36415; 71010; 80048; 80076; 80307; 81003; 82550; 82553; 83735; 84484; 85025; 85027; 87086; 93005; 96361; 96365; 96366; 96375; 99285; G0480; J0696; J2060; J3411; J3475; J7042

== ENCOUNTER 2017-04-11 13:57 | Emergency (ER) | payer OTHER ==
[~2017-04-11 13:57] MED LIST changes: +GABAPENTIN300 M2 PO; +LIBRIUM25 MG PO; +THERA-TABS M C1 EACH PO
[2017-04-11 15:05] LABS: BASOPHIL# 0.1 X10e3 (0-0.3); BASOPHIL% 2.3 % (0-2.5); EOSINOPHIL# 0.1 X10e3 (0-0.7); EOSINOPHIL% 1.9 % (0.0-7.0); HEMATOCRIT 38.2 % (35.0-45.0); HEMOGLOBIN 12.2 gm/dL (12.0-16.0); LYMPHOCYTE# 1.8 X10e3 (1.0-3.5); LYMPHOCYTE% 36.8 % (17.0-45.0); MEAN CELL VOLUME 83.1 FL (83-96); MEAN CORPUSCULAR HEMOGLOBIN 26.6 PG (28-34); MEAN PLATELET VOLUME 8.9 FL (6.5-11.5); MONOCYTE# 0.4 X10e3 (0-1.0); MONOCYTE% 7.3 % (3.0-12.0); NEUTROPHIL# 2.5 X10e3 (1.5-7.1); NEUTROPHIL% 51.7 % (40-75); PLATELET COUNT 224 X10e3 (140-420); RED CELL DISTRIBUTION WIDTH 18.6 % (11.0-15.5); WHITE BLOOD COUNT 4.9 X10e3 (4.0-10.5)
[2017-04-11 15:12] LABS: URINE SOURCE CLEAN CATCH
[2017-04-11 15:13] LABS: DIFF IND NO
[2017-04-11 15:26] LABS: CULTURE INDICATED? YES; U HYALINE CASTS AUWI 0-2 /[LPF]; URBCS1 AUWI 0-2 /[HPF] (0-2); URINE APPEARANCE CLOUDY; URINE BACTERIA AUWI 2+ (NEGATIVE); URINE BILIRUBIN NEG (NEG); URINE BLOOD NEG (NEG); URINE COLOR YELLOW; URINE GLUCOSE NEG (NEG); URINE KETONE NEG (NEG); URINE LEUKOCYTE ESTERASE 3+ (NEG); URINE NITRATE NEG (NEG); URINE PROTEIN NEG (NEG); URINE SPECIFIC GRAVITY 1.004 (1.003-1.035); URINE SQUAMOUS EPITHELIAL CELL MOD /[HPF]; URINE UROBILINOGEN 0.2 MG/DL (NEG)
[2017-04-11 15:38] LABS: ALBUMIN SERUM 4.1 g/dL (3.5-5.0); ALKALINE PHOSPHATASE 71 U/L (32-92); ALT (SGPT) 22 U/L (10-40); AST (SGOT) 48 U/L (10-42); BILIRUBIN, DIRECT <0.1 mg/dL (0.0-0.2); BILIRUBIN,INDIRECT 0.3 mg/dL (0.0-0.9); BILIRUBIN,TOTAL 0.4 mg/dL (0.2-2.0); BLOOD UREA NITROGEN 6 mg/dL (9-23); CALCIUM SERUM 8.7 mg/dL (8.4-10.2); CARBON DIOXIDE 26 mmol/L (22-31); CHLORIDE 98 mmol/L (100-111); CREATININE SERUM 0.5 mg/dL (0.6-1.4); GLOM FILT RATE Estimated 113.7 mL/min (>60); GLUCOSE FASTING 90 mg/dL (70-110); POTASSIUM 3.6 mmol/L (3.5-5.1); PROTEIN TOTAL SERUM 7.4 g/dL (6.0-8.3); SODIUM 136 mmol/L (135-145)
[2017-04-11 15:39] LABS: ALCOHOL BLOOD 318 mg/dL (0)
[2017-04-11 15:44] LABS: AMPHETAMINE NEG (NEG); BARBITURATES NEG (NEG); BENZODIAZEPINES POS (NEG); COCAINE NEG (NEG); MARIJUANA NEG (NEG); OPIATES NEG (NEG); TRICYCLIC ANTIDEPRESSANTS NEG (NEG); U METHADONE NEG (NEG)
== END 2017-04-11 20:20 | disposition home or self-care (01) ==
LOC: CED 13:57
PROVIDERS: Emergency Medicine
DX: F10.129 Alcohol abuse with intoxication, unspecified (principal); Y90.9 Presence of alcohol in blood, level not specified; K21.9 Gastro-esophageal reflux disease without esophagitis; F41.9 Anxiety disorder, unspecified; I10 Essential (primary) hypertension; F17.210 Nicotine dependence, cigarettes, uncomplicated
CPT/HCPCS: 36415; 80048; 80076; 80307; 81003; 84703; 85025; 87086; 87088; 87186; 99283; G0480

== ENCOUNTER 2017-04-19 08:30 | Inpatient (IN) | payer OTHER ==
--- NOTE | ~2017-04-19 | DS ---
Unit #: [id number] #: [id number] Patient: ELVIRA GARVIN [id number] [address] [address] [id number] I MR#: [id number] NAME: ELVIRA GARVIN ROOM: 309 Age: 51 Sex: F Admission Date: 04/19/2017 : 1965 Discharge Date: 04/22/2017 Attending Physician: Mike Arnold M.D. Primary Care Physician: No Primary Care Physician DISCHARGE SUMMARY ADDENDUM After patient was seen and discharged by myself, social media director came by to evaluate the patient. Patient told her that she is severely depressed and because of the depression, she consumes herself with alcohol. Therefore, outpatient [facility] was asked to see and evaluate the patient. Patient was accepted to inpatient psychiatric facility for ongoing depression related to alcohol intoxication. Patient will be discharged to [facility] instead of the previous plan to home. I will ask her to follow up with her primary care physician within 1-2 weeks following the discharge. Dictated by... Charlotte Ronquillo PA-C for Charly Elena/mindi TD: 04/24/2017 08:13 JOB #: [id number] DISCHARGE SUMMARY Page 1 of 1 X X DISCHARGE SUMMARY
--- NOTE | ~2017-04-19 | CR72 ---
[facility] A Service of [facility] & [facility] RADIOLOGY TEXT RESULTS PATIENT: ELVIRA GARVIN LOCATION: CEDOF [address]-02 : [birth year] UNIT #: [id number] AGE: [address]: BALDEV MIGUEL MD SEX: F ORDER DR: [id number] [facility] [address] [place], [place] [address] [id number] I MR#: [id number] Acc #: [id number] NAME: ELVIRA GARVIN : 1965 SEX: F STUDY DATE/TIME: 04/19/2017 11:25 UNIT: [facility] ROOM: 45803 STUDY DESCRIPTION: CR Chest Single View Portable Attending Physician: Baldev Miguel M.D. Ordering Physician: Escobar Martin M.D. Primary Care Physician: Primary Care Physician No MEDICAL IMAGING REPORT This report is preliminary unless electronic signature is present EXAM Chest portable 04/19/2017 1125 hours HISTORY 51-year-old woman with altered mental status today. History of liver failure, pancreatitis, alcohol detoxification, hypertension. COMPARISON 03/21/2017 FINDINGS Portable upright chest demonstrates low lung volumes. Allowing for the lower lung volumes the cardiac, mediastinal and hilar contours are normal. The lungs are clear. There is no pleural effusion or pneumothorax. No free air seen in the abdomen. IMPRESSION Low lung volume film with no acute cardiopulmonary findings and no appreciable change from 03/21/2017. Dictated by... Cordelia Frausto M.D. THIS IS AN ELECTRONICALLY VERIFIED REPORT Cordelia Frausto M.D. at 04/19/2017 2:27 PM Christina TD: 04/19/2017 13:27 JOB #: [id number] MEDICAL IMAGING REPORT Page 1 of 1 COPY
--- NOTE | ~2017-04-19 | EKG ---
PATIENT: ELVIRA GARVIN UNIT #: [id number] Ventricular Rate: 156 BPM Atrial Rate: 468 BPM QRS Duration: 80 ms Q-T Interval: 326 ms QTC Calculation(Bezet): 525 ms Calculated R [place]: 73 degrees Calculated T [place]: 66 degrees Diagnosis Line: Supraventricular tachycardia Diagnosis Line: Otherwise normal ECG Diagnosis Line: When compared with ECG of 21-MAR-2017 20:19, Diagnosis Line: Non-specific change in ST segment in Inferior Diagnosis Line: leads Diagnosis Line: ST more depressed Lateral leads Diagnosis Line: Confirmed by MARLON GAMING MD ([id number]) on Diagnosis Line: 04/20/2017 4:24:57 PM INTERPRETING MD: AMBERLY PAUL
--- NOTE | ~2017-04-19 | CR72 ---
[facility] A Service of [facility] & [facility] RADIOLOGY TEXT RESULTS PATIENT: ELVIRA GARVIN LOCATION: [facility] 309-01 : [birth year] UNIT #: [id number] AGE: [address]: Mike Arnold MD SEX: F ORDER DR: [id number] [facility] [address] [place], [place] [address] [id number] I MR#: [id number] Acc #: [id number] NAME: ELVIRA GARVIN : 1965 SEX: F STUDY DATE/TIME: 04/21/2017 5:19 UNIT: [facility] ROOM: [facility] STUDY DESCRIPTION: CR Chest Single View Portable Attending Physician: Mike Arnold M.D. Ordering Physician: Caleb Luna M.D. Primary Care Physician: No Primary Care Physician MEDICAL IMAGING REPORT This report is preliminary unless electronic signature is present EXAM Single view chest. INDICATION Delirium. Shortness of air. Lethargy. FINDINGS Single, portable, AP view of the chest compared to 04/19/2017. There is a right PICC terminating over the SVC. Heart and mediastinal contours are normal. There is no focal airspace opacity. There is a small right pleural effusion suspected. IMPRESSION 1. Interval placement of a right PICC with the tip terminating over the SVC. 2. Suspected trace right pleural effusion. Dictated by... Darren Montero M.D. THIS IS AN ELECTRONICALLY VERIFIED REPORT Darren Montero M.D. at 04/22/2017 12:04 AM POORNIMA/reji TD: 04/21/2017 07:13 JOB #: [id number] MEDICAL IMAGING REPORT Page 1 of 1 COPY
--- NOTE | ~2017-04-19 | HP ---
Unit #: [id number] #: [id number] Patient: ELVIRA GARVIN [id number] [address] [place], [place] [address] [id number] I MR#: [id number] NAME: ELVIRA GARVIN ROOM: 15446 Age: 51 Sex: F Admission Date: 04/19/2017 : 1965 Attending Physician: Erasmo Miguel M.D. Primary Care Physician: No Primary Care Physician HISTORY AND PHYSICAL CHIEF COMPLAINT Drug/alcohol evaluation. HISTORY OF PRESENT ILLNESS The patient is a 51-year-old female with a history of alcohol abuse, drinks a pint of alcohol and the last alcohol was yesterday morning, esophagitis, presented to the emergency room with the DTs and hypokalemia. The patient drinks a pint or more of liquor on a daily basis. The patient presented to the emergency room with alcoholic intoxication symptoms and uncontrollable shaking. The patient denies any nausea and vomiting. The patient was diagnosed with a UTI recently and was discharged home on the Macrobid 100 mg p.o. b.i.d. The patient is being admitted for the DTs. The patient has multiple admissions in the past for the similar reasons. PAST MEDICAL HISTORY 1. History of alcohol abuse with history of alcohol withdrawal. 2. History of alcohol-induced pancreatitis. 3. GI bleeding in the past with the EGD showing ulcerative esophagitis and gastritis. 4. GERD. 5. Bipolar disorder. 6. DJD. PAST SURGICAL HISTORY Hip replacement, right. ALLERGIES No known drug allergies. HOME MEDICATIONS She is on gabapentin, paroxetine, chlordiazepoxide, multivitamins, trazodone, Prilosec, BuSpar, Abilify, Zocor. SOCIAL HISTORY The patient lives with her boyfriend. She smokes half a pack per day and does not use any illicit drug abuse. She drinks at least a pint of alcohol on a daily basis. FAMILY HISTORY Family history notable for alcohol disease. REVIEW OF SYSTEMS Fourteen-point review of symptoms performed and only pertinent positive Unit #: [id number] #: [id number] Patient: ELVIRA GARVIN findings are described above, remaining are negative. PHYSICAL EXAMINATION GENERAL APPEARANCE: On examination the patient is lying on a bed not in acute distress. VITAL SIGNS: Temperature 99.2, pulse 94, respiration 24, sating 97% at 2 L. Blood pressure 130/62. HEENT: Head atraumatic, normocephalic. Pupils equal, round and reacting to light and accommodation. Extraocular movements are intact. Dry mucous membranes. NECK: Supple. LUNGS: Clear to auscultation. HEART: Regular rhythm, tachycardic. ABDOMEN: Soft, positive bowel sounds. EXTREMITIES: No cyanosis. No clubbing. NEUROLOGIC: The patient has tremors at rest and patient continues to have shaking chills. DIAGNOSTIC STUDIES IMAGING: Chest x-ray shows low lung volume film with no acute cardiopulmonary findings and no appreciable change from 03/21/2017. LABORATORY DATA: Glucose 100, BUN 23, creatinine 1.4, sodium 131, potassium 2.1, chloride 68, calcium 8, albumin 3.9, AST 63, ALT 28, alkaline phosphatase 61, lipase is 100, and ammonia level is 122 and lactic acid is 18.1 and alcohol level was 318 on April 11. INR is 1. WBC 8.9, hemoglobin 14.5, hematocrit 44.9, platelets 157. Urine tox is positive for benzodiazepines and UA shows 1+ protein and 1+ blood. ASSESSMENT AND PLAN 1. Alcohol intoxication. 2. Delirium tremens. 3. Hyponatremia. 4. Hypokalemia. 5. Lactic acidosis from the alcohol intoxication. PLAN Patient is being admitted to the ICU. Patient will have the CIWA protocol and continue with the sepsis protocol with a repeat lactic acid and replace the potassium and mag protocol and patient will have a psych consult and critical care consult also for the ICU admission. The patient is requiring high doses of the Ativan IV and will be monitored closely in the ICU and repeat the labs again in the morning and further recommendations will follow. Dictated by Charly Long TD: 04/19/2017 15:21 JOB #: [id number] Unit #: [id number] #: [id number] Patient: ELVIRA GARVIN HISTORY AND PHYSICAL Page 1 of 1 X X HISTORY AND PHYSICAL
--- NOTE | ~2017-04-19 | CO ---
Unit #: [id number] #: [id number] Patient: ELVIRA LINARES [id number] [facility] [address] [place], [place] [address] [id number] I MR#: [id number] NAME: ELVIRA LINARES ROOM: 309 Age: 51 Sex: F Admission Date: 04/19/2017 : 1965 Attending Physician: Mike Arnold M.D. Primary Care Physician: No Primary Care Physician Consultation Date: 04/22/2017 CONSULTATION REPORT REASON FOR CONSULTATION Alcohol abuse, alcohol withdrawal, depression. HISTORY OF PRESENT ILLNESS Ms. Elvira Linares is a 51-year-old white female seen in room 309 bed-1 on 04/22/17 at [facility]. Patient was admitted with depression and alcohol abuse. Patient reported feeling better, currently denied any suicidal or homicidal ideation but still feeling sad, depressed. Denied any psychotic symptoms. Vital signs - 98.4, 107, 18, 146/100. Oxygen saturation 99%. Patient is currently on CIWA protocol. Patient was admitted with alcohol withdrawal symptom. PAST PSYCHIATRIC HISTORY Remarkable for history of alcohol abuse, depression. No history of any previous treatment. MEDICAL HISTORY The patient has a history of: 1. Alcohol abuse. 2. History of alcohol withdrawal. 3. Alcohol-induced pancreatitis. 4. GI bleeding. 5. GERD. 6. Bipolar disorder. 7. DJD. ALLERGIES No known drug allergies. MEDICATIONS Patient is on: 1. Gabapentin. 2. Paroxetine. 3. Chlordiazepoxide. 4. Multivitamin. 5. Trazodone. 6. Prilosec. 7. BuSpar. 8. Abilify. 9. Zocor. FAMILY HISTORY/SOCIAL HISTORY Unit #: [id number] #: [id number] Patient: ELVIRA LINARES The patient lives with her boyfriend, has a good support system. No history of any illicit drug abuse but history of using alcohol, a pint of alcohol on a daily basis. No history of abuse. REVIEW OF SYSTEMS Complete review of systems is unremarkable except as mentioned above. MENTAL STATUS EXAMINATION VITAL SIGNS: Please see above. GENERAL APPEARANCE: Patient is thin built, casually dressed. Attention span and concentration fair. Speech is slow in volume with long pauses. Oriented in time, place and person. Mood and affect sad, depressed, flat affect. Thought process coherent. Thought content - patient denied any thoughts of harming self or others but guarded, withdrawn. Denied any hallucinations. Recent and remote memory fair. Language intact. Fund of knowledge fair. Insight and judgment fair to slightly impaired. DIAGNOSIS PSYCHIATRIC: 1. Alcohol use disorder, severe - F10.20 2. Bipolar mood disorder, not otherwise specified - F31.89 SECONDARY DIAGNOSIS Deferred. MEDICAL DIAGNOSIS Please refer to H and P. STRESSORS Psychosocial stressor. ASSESSMENT/PLAN 1. Supportive psychotherapy and psychoeducation provided to patient. 2. Educated about benefits and side effects of medications and course and prognosis of illness. 3. Advised to continue with current detox protocol with the plan to resume home medication and make further adjustment of medication if needed. We will continue to follow. Continue with current therapy and treatment on the inpatient unit. If needed, consider further adjustment of medication. Please feel free to call if any questions. Telephone number [phone]. Dictated by... Charly Murphy/natalia TD: 04/23/2017 08:59 JOB #: [id number] Unit #: [id number] #: [id number] Patient: ELVIRA LINARES CONSULTATION REPORT Page 1 of 1 X Mckay Bliss MD X CONSULTATION REPORT
--- NOTE | ~2017-04-19 | CO ---
Unit #: [id number] #: [id number] Patient: ELVIRA GARVIN [id number] [address] [address] [id number] I MR#: [id number] NAME: ELVIRA GARVIN ROOM: [facility] Age: 51 Sex: F Admission Date: 04/19/2017 : 1965 Attending Physician: Mike Arnold M.D. Primary Care Physician: Primary Care Physician No CONSULTATION REPORT REASON FOR CONSULTATION Critical care management. CHIEF COMPLAINT Alcohol withdrawal. HISTORY OF PRESENT ILLNESS Gecgz[age]jwcu-tudw-old female, with past medical history of GI bleed, gastroesophageal reflux disease, bipolar disorder, degenerative joint disease, came in with the complaint of generalized shaking and alcohol intoxication symptoms, currently lethargic, maintaining airway very well and has been admitted with impression of alcohol intoxication, delirium tremens, and hyponatremia, hypokalemia, I am seeing the patient at the bedside. REVIEW OF SYSTEMS Unobtainable. PAST MEDICAL HISTORY As described above. SURGICAL HISTORY Hip replacement. ALLERGIES No known drug allergies. MEDICATIONS 1. Gabapentin 2. Paroxetine 3. Chlordiazepoxide 4. Multivitamin 5. Trazodone 6. Prilosec 7. BuSpar 8. Abilify 9. Zocor SOCIAL HISTORY Half pack smoker, drinks alcohol. PHYSICAL EXAMINATION VITAL SIGNS: Temperature 99, pulse 94, respiration 16, and blood pressure 130/70. Unit #: [id number] #: [id number] Patient: ELVIRA GARVIN NEUROLOGIC: Sedated. CVS: S1 plus S2. RESPIRATORY: Bilateral air entry, bilateral mild rhonchi. GI: Nontender. Soft. Bowel sounds positive. EXTREMITIES: No edema. SKIN: No rash. LYMPHATICS: No lymphadenopathy. LABS AND IMAGING: Has been reviewed. ASSESSMENT/PLAN 1. Alcohol intoxication. 2. Delirium tremens. 3. Hyponatremia. 4. Hypokalemia. Plan is to continue the patient on IV fluids, continue alcohol withdrawal protocol, GI and DVT prophylaxis. Continue oxygen, bronchodilator, and maintaining airway very well. Please see orders for details. Thank you very much for this consultation. Dictated by... Charly Gerber TD: 04/20/2017 12:29 JOB #: [id number] CONSULTATION REPORT Page 1 of 1 X Caleb Luna MD CONSULTATION REPORT
--- NOTE | ~2017-04-19 | DS ---
Unit #: [id number] #: [id number] Patient: ELVIRA GARVIN [id number] [address] [place], [place] [address] [id number] I MR#: [id number] NAME: ELVIRA GARVIN ROOM: 309 Age: 51 Sex: F Admission Date: 04/19/2017 : 1965 Discharge Date: 04/22/2017 Attending Physician: Mike Arnold M.D. DISCHARGE SUMMARY PROCEDURES None. CONSULTANTS Pulmonary with Dr. Cara Miguel and Dr. Luna. DIAGNOSTIC STUDIES LABORATORY: Patient's last labs were BMP with glucose of 125, BUN 8, creatinine 0.4, sodium 136, potassium 3.1, chloride 100, CO2 of 29, calcium 8.2, magnesium 1.2, AST 62, ALT 30, alkaline phosphatase 50, and CBC with WBC of 4.8, RBC 3.88, hemoglobin 10.3, hematocrit 33, MCV 85.1, MCH 76.6, MCHC 31.2, RDW 18.8, platelets 89,000, and MPV 9.3. IMAGING: Chest x-ray on April 19, 2017, impression: Low lung volume film with no acute cardiopulmonary findings and no appreciable change from March 21, 2017. Chest x-ray on April 21, 2017, impression: Interval placement of a right PICC with the tip terminating over the SVC. Suspected trace right pleural effusion. HOSPITAL COURSE The patient is a 51-year-old female with a past medical history of severe alcoholism with multiple admissions for alcohol withdrawal, history of alcohol-induced pancreatitis, GI bleed with EGD showing ulcerative esophagitis and gastritis, GERD, bipolar disorder, and degenerative joint disease, who presented to the emergency department due to tremors. Patient was last hospitalized on March 22, 2017, and discharged March 24, 2017, due to alcoholism with tremors. Patient stated that she was discharged and had been wanting to quit drinking but came home and pretty much started drinking again. Patient states that she does drink a pint or more of liquor daily. She lives with her boyfriend who also drinks. She does not work out of the home but her boyfriend does. Patient has no other siblings, no children, and no other social support. Patient states that she drinks as (1) depression and (2) she likes the taste of drinking. She was admitted and sent to the ICU due to alcoholism with delirium tremens. She had received electrolyte replacement. At this time, she has no further evidence of alcohol withdrawal. She is not needing Ativan. She is stable to be discharged after potassium and magnesium are replaced. I spoke with the patient about her poor prognosis and need for recurrent hospitalizations if she does not go home and stop drinking. She tells me that she would like to stop drinking, and she would like to have a job and have a regular life, but she has no true plans to do that. I have asked Unit #: [id number] #: [id number] Patient: ELVIRA GARVIN the patient if she needs any further assistance at this time, and she denies any need. She was also seen in consultation with Dr. Bliss, who stated that patient is stable to be discharged home. DISCHARGE DISPOSITION Stable to home. LONG-TERM PROGNOSIS Guarded due to poor insight to life. DISCHARGE MEDICATIONS 1. Gabapentin 600 mg orally 3 times daily, paroxetine 40 mg orally daily, and trazodone 50 mg orally daily as needed at bedtime. Those were her home medicines, and no prescriptions were given. 2. Abilify 5 mg orally daily. 3. BuSpar 15 mg orally 3 times daily. 4. Simvastatin 20 mg orally at bedtime. 5. Multivitamin 1 tablet orally daily. 6. Omeprazole 40 mg orally daily. 7. Folic acid 1 mg orally daily. 8. Thiamine 100 mg orally daily. 1. Dictated by... Charlotte Ronquillo PA-C for Charly Elena TD: 04/22/2017 17:55 JOB #: [id number] DISCHARGE SUMMARY Page 1 of 1 X X DISCHARGE SUMMARY
[2017-04-19 09:30] LABS: POC - CKMB 20.6 ng/mL (0.0-7.9); POC - TROPONIN <0.05 ng/mL (<=0.05)
[2017-04-19 09:44] LABS: BASOPHIL% 0.3 % (0-2.5); EOSINOPHIL% 0.3 % (0.0-7.0); HEMATOCRIT 44.9 % (35.0-45.0); HEMOGLOBIN 14.5 gm/dL (12.0-16.0); LYMPHOCYTE# 1.9 X10e3 (1.0-3.5); LYMPHOCYTE% 21.5 % (17.0-45.0); MEAN CELL VOLUME 83.4 FL (83-96); MEAN CORPUSCULAR HEMOGLOBIN 26.9 PG (28-34); MEAN CORPUSCULAR HGB CONC 32.3 g/dL (30-36); MEAN PLATELET VOLUME 9.3 FL (6.5-11.5); MONOCYTE# 0.9 X10e3 (0-1.0); MONOCYTE% 10.2 % (3.0-12.0); NEUTROPHIL# 6.1 X10e3 (1.5-7.1); NEUTROPHIL% 67.7 % (40-75); RED BLOOD COUNT 5.39 X10e (3.90-5.30); RED CELL DISTRIBUTION WIDTH 18.7 % (11.0-15.5); WHITE BLOOD COUNT 8.9 X10e3 (4.0-10.5)
[2017-04-19 10:05] LABS: URINE SOURCE CLEAN CATCH
[2017-04-19 10:11] LABS: URINE APPEARANCE CLEAR; URINE BILIRUBIN NEG (NEG); URINE BLOOD 1+ (NEG); URINE COLOR YELLOW; URINE GLUCOSE NEG (NEG); URINE KETONE 3+ (NEG); URINE LEUKOCYTE ESTERASE NEG (NEG); URINE NITRATE NEG (NEG); URINE PROTEIN 1+ (NEG); URINE SPECIFIC GRAVITY 1.013 (1.003-1.035); URINE UROBILINOGEN 0.2 MG/DL (NEG)
[2017-04-19 10:13] LABS: CULTURE INDICATED? NO; URINE BACTERIA AUWI NEG (NEGATIVE); URINE SQUAMOUS EPITHELIAL CELL NONE SEEN /[HPF]
[2017-04-19 10:14] LABS: PLATELET COUNT 157 X10e3 (140-420)
[2017-04-19 10:15] LABS: DIFF IND YES
[2017-04-19 10:31] LABS: ANISOCYTOSIS SL; PLATELET ESTIMATE NORMAL (NORMAL)
[2017-04-19 10:52] LABS: POC - CKMB 17.2 ng/mL (0.0-7.9); POC - TROPONIN <0.05 ng/mL (<=0.05)
[2017-04-19 10:57] LABS: AMPHETAMINE NEG (NEG); BARBITURATES NEG (NEG); BENZODIAZEPINES POS (NEG); COCAINE NEG (NEG); MARIJUANA NEG (NEG); OPIATES NEG (NEG); TRICYCLIC ANTIDEPRESSANTS NEG (NEG); U METHADONE NEG (NEG)
[2017-04-19] MEDS ORDERED: GABAPENTIN300 M2 PO (12:15)
[2017-04-19] MEDS ORDERED: PAROXETINE HCL40 M1 PO (12:15)
[2017-04-19] MEDS ORDERED: CHLORDIAZEPOXID25 MG PO (12:16)
[2017-04-19] MEDS ORDERED: DESYREL50 MG PO (12:16)
[2017-04-19] MEDS ORDERED: OMEPRAZOLE40 M1 PO (12:16)
[2017-04-19] MEDS ORDERED: MULTIVITAMINS1 EAC3 PO (12:16)
[2017-04-19] MEDS ORDERED: BUSPAR15 M2 PO (12:17)
[2017-04-19 12:18] LABS: ALBUMIN SERUM 3.9 g/dL (3.5-5.0); BILIRUBIN,TOTAL 1.4 mg/dL (0.2-2.0); BUN/CREATININE RATIO 16.42; CREATININE SERUM 1.4 mg/dL (0.6-1.4); PROTEIN TOTAL SERUM 7.1 g/dL (6.0-8.3)
[2017-04-19] MEDS ORDERED: ZOCOR20 MG PO (12:18)
[2017-04-19] MEDS ORDERED: ABILIFY5 MG PO (12:18)
[2017-04-19 12:23] LABS: POTASSIUM 2.1 mmol/L (3.5-5.1)
[2017-04-19 15:28] LABS: BASOPHIL% 0.2 % (0-2.5); EOSINOPHIL% 0.1 % (0.0-7.0); HEMATOCRIT 37.2 % (35.0-45.0); LYMPHOCYTE# 1.6 X10e3 (1.0-3.5); LYMPHOCYTE% 21.1 % (17.0-45.0); MEAN CELL VOLUME 81.2 FL (83-96); MEAN CORPUSCULAR HEMOGLOBIN 26.5 PG (28-34); MEAN CORPUSCULAR HGB CONC 32.7 g/dL (30-36); MEAN PLATELET VOLUME 9.3 FL (6.5-11.5); NEUTROPHIL# 4.9 X10e3 (1.5-7.1); NEUTROPHIL% 65.6 % (40-75); PLATELET COUNT 104 X10e3 (140-420); RED BLOOD COUNT 4.57 X10e (3.90-5.30); RED CELL DISTRIBUTION WIDTH 18.5 % (11.0-15.5); WHITE BLOOD COUNT 7.4 X10e3 (4.0-10.5)
[2017-04-19 15:29] LABS: DIFF IND NO; HEMOGLOBIN 12.1 gm/dL (12.0-16.0)
[2017-04-19 15:42] LABS: BUN/CREATININE RATIO 19.09; CALCIUM SERUM 7.6 mg/dL (8.4-10.2); CREATININE SERUM 1.1 mg/dL (0.6-1.4); GLOM FILT RATE Estimated 58.9 mL/min (>60)
[2017-04-19 15:45] LABS: POTASSIUM 2.5 mmol/L (3.5-5.1)
[2017-04-20 09:59] LABS: BASOPHIL% 0.3 % (0-2.5); EOSINOPHIL# 0.1 X10e3 (0-0.7); EOSINOPHIL% 1.5 % (0.0-7.0); HEMATOCRIT 37.4 % (35.0-45.0); HEMOGLOBIN 11.7 gm/dL (12.0-16.0); LYMPHOCYTE# 1.4 X10e3 (1.0-3.5); LYMPHOCYTE% 29.4 % (17.0-45.0); MEAN CELL VOLUME 83.9 FL (83-96); MEAN CORPUSCULAR HEMOGLOBIN 26.3 PG (28-34); MEAN CORPUSCULAR HGB CONC 31.3 g/dL (30-36); MEAN PLATELET VOLUME 9.1 FL (6.5-11.5); MONOCYTE# 0.6 X10e3 (0-1.0); MONOCYTE% 11.9 % (3.0-12.0); NEUTROPHIL# 2.6 X10e3 (1.5-7.1); NEUTROPHIL% 56.9 % (40-75); RED BLOOD COUNT 4.45 X10e (3.90-5.30); RED CELL DISTRIBUTION WIDTH 18.8 % (11.0-15.5); WHITE BLOOD COUNT 4.6 X10e3 (4.0-10.5)
[2017-04-20 10:20] LABS: BUN/CREATININE RATIO 18.75; CALCIUM SERUM 8.4 mg/dL (8.4-10.2); CREATININE SERUM 0.8 mg/dL (0.6-1.4); GLOM FILT RATE Estimated 86.6 mL/min (>60)
[2017-04-20 10:21] LABS: THYROID STIMULATING HORMONE 2.56 uIU/ml (0.34-5.60)
[2017-04-20 10:23] LABS: DIFF IND YES; PLATELET COUNT 99 X10e3 (140-420)
[2017-04-20 10:26] LABS: ANISOCYTOSIS MOD; PLATELET ESTIMATE DECREASED (NORMAL)
[2017-04-20 10:28] LABS: FREE THYROXIN (T4) 1.24 ng/dL (0.58-1.64)
[2017-04-21 04:05] LABS: ARTERIAL BLD GAS O2 SATURATION 97.3 % (90.0-100.0); ARTERIAL BLOOD GAS CARBOXY HB 0.7 %sat (0.0-9.0); ARTERIAL BLOOD GAS HCO3 32.4 mmol/L; ARTERIAL BLOOD GAS MET HB 1.1 %sat (0.0-2.0); ARTERIAL BLOOD GAS PCO2 48.4 mmHg (35.0-45.0); ARTERIAL BLOOD GAS pH 7.433 (7.350-7.450)
[2017-04-21 04:16] LABS: ARTERIAL BLOOD GAS ALLEN TEST NORMAL; ARTERIAL BLOOD GAS ART SITE RIGHT RADIAL; ARTERIAL BLOOD GAS DELIVERY NASAL CANNULA; ARTERIAL DRAW? YES
[2017-04-21 05:48] LABS: BASOPHIL% 0.6 % (0-2.5); EOSINOPHIL# 0.2 X10e3 (0-0.7); EOSINOPHIL% 4.5 % (0.0-7.0); HEMOGLOBIN 10.3 gm/dL (12.0-16.0); LYMPHOCYTE# 1.8 X10e3 (1.0-3.5); LYMPHOCYTE% 37.1 % (17.0-45.0); MEAN CELL VOLUME 85.1 FL (83-96); MEAN CORPUSCULAR HEMOGLOBIN 26.6 PG (28-34); MEAN CORPUSCULAR HGB CONC 31.2 g/dL (30-36); MEAN PLATELET VOLUME 9.3 FL (6.5-11.5); MONOCYTE# 0.5 X10e3 (0-1.0); MONOCYTE% 9.9 % (3.0-12.0); NEUTROPHIL# 2.3 X10e3 (1.5-7.1); NEUTROPHIL% 47.9 % (40-75); PLATELET COUNT 89 X10e3 (140-420); RED BLOOD COUNT 3.88 X10e (3.90-5.30); RED CELL DISTRIBUTION WIDTH 18.8 % (11.0-15.5); WHITE BLOOD COUNT 4.8 X10e3 (4.0-10.5)
[2017-04-21 05:49] LABS: DIFF IND NO
[2017-04-21 06:36] LABS: ALBUMIN SERUM 3.1 g/dL (3.5-5.0); BILIRUBIN,TOTAL 0.4 mg/dL (0.2-2.0); CALCIUM SERUM 8.2 mg/dL (8.4-10.2); CREATININE SERUM 0.4 mg/dL (0.6-1.4); GLOM FILT RATE Estimated 122.3 mL/min (>60); POTASSIUM 3.4 mmol/L (3.5-5.1); PROTEIN TOTAL SERUM 5.8 g/dL (6.0-8.3)
[2017-04-22 07:26] LABS: MAGNESIUM 1.2 mg/dL (1.6-3.0); POTASSIUM 3.2 mmol/L (3.5-5.1)
[2017-04-22] MEDS ORDERED: THIAMINE HCL100 M1 PO (11:28)
[2017-04-22] MEDS ORDERED: FOLIC ACID PO (11:28)
[2017-04-22 18:41] LABS: MAGNESIUM 3.3 mg/dL (1.6-3.0); POTASSIUM 3.8 mmol/L (3.5-5.1)
== END 2017-04-22 21:02 | DRG 897 ==
LOC: CED 08:30 → CICCU2 12:58 → CEDOF 12:58 → CED 13:06 → CEDOF 13:06 → CICCU2 04-20 09:01 → C3A PCU 04-21 13:19
PROVIDERS: Emergency Medicine; Family Medicine; Internal Medicine; Physician Assistant Medical
PROC: 02HV33Z Insertion of Infusion Device into Superior Vena Cava, Percutaneous Approach (ICD-10-PCS; principal; 2017-04-19)
PROC: 4A02X4A Measurement of Cardiac Electrical Activity, Guidance, External Approach (ICD-10-PCS; 2017-04-19)
DX: F10.231 Alcohol dependence with withdrawal delirium (principal); E87.2 Acidosis; E87.1 Hypo-osmolality and hyponatremia; F31.89 Other bipolar disorder; K21.9 Gastro-esophageal reflux disease without esophagitis; M19.90 Unspecified osteoarthritis, unspecified site; Z96.641 Presence of right artificial hip joint; F10.229 Alcohol dependence with intoxication, unspecified; E87.6 Hypokalemia; F32.9 Major depressive disorder, single episode, unspecified
CPT/HCPCS: 36600; 51702; 71010; 80048; 80053; 80307; 81003; 82140; 82553; 82803; 82947; 83605; 83690; 83735; 84132; 84439; 84443; 84484; 85025; 85610; 87040; 93005; 96361; 96365; 96366; 96375; 96376; 99291; J0290; J2060; J3411; J3475; J7042

== ENCOUNTER 2017-04-22 14:00 | Inpatient (IN) | payer OTHER ==
--- NOTE | ~2017-04-22 | PN ---
Unit #: [id number] #: [id number] Patient: DARLEEN GARVIN [id number] [facility] [address] [place] [address] [id number] I MR#: [id number] NAME: DARLEEN GARVIN ROOM: P211 Age: 51 Sex: F Admission Date: 04/22/2017 : 1965 Attending Physician: Hector Lang M.D. Admitting Physician: Hector Lang M.D. Primary Care Physician: Primary Care Physician No DEMETRI PROGRESS NOTES DATE 04/25/2017 DISCUSSION Darleen is showing improvement today. Her alcohol detox is better with a brighter range of affect. She is for alert and fully oriented. Memory and concentration are fair. Her thought processes are logical with no psychosis. No delirium or confusion, and no suicidal ideation. ASSESSMENT Alcohol dependence. PLAN Continue current treat plan anticipating discharge soon. Dictated by... Hector Lang M.D. MRH/bzg TD: 04/27/2017 10:29 JOB #: [id number] [facility] PROGRESS NOTES Page 1 of 1 X Hector Lang MD X PROGRESS NOTE
--- NOTE | ~2017-04-22 | HP ---
Unit #: [id number] #: [id number] Patient: ELVIRA GARVIN [id number] [facility] [address] [place] [address] [id number] I MR#: [id number] NAME: ELVIRA GARVIN ROOM: P211 Age: 51 Sex: F Admission Date: 04/22/2017 : 1965 Attending Physician: Hector Lang M.D. Admitting Physician: Hector Lang M.D. Primary Care Physician: Primary Care Physician No HISTORY AND PHYSICAL HISTORY OF PRESENT ILLNESS Elvira is a 51 year old admitted to [address] [place] [address] because of her abuse of alcohol. She is detoxing. She was just discharged from [facility] where she was admitted on 04/19/2017 because of her alcohol abuse. When medically stable she was transferred to [facility] for psychiatric care. The patient was seen and H and P from [facility] dated 04/19/2017 was reviewed. This is current. No changes. Please see H and P dated 04/19/2017. Dictated by... Cheryl Pool P.A.-C. for Charly Hidalgo/zackary TD: 04/23/2017 19:51 JOB #: [id number] HISTORY AND PHYSICAL Page 1 of 1 X Cheryl Pool HISTORY AND PHYSICAL
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
--- NOTE | ~2017-04-22 | PN ---
Unit #: [id number] #: [id number] Patient: ELVIRA GARVIN [id number] [facility] [address] [place] [address] [id number] I MR#: [id number] NAME: ELVIRA GARVIN ROOM: P211 Age: 51 Sex: F Admission Date: 04/22/2017 : 1965 Attending Physician: Hector Lang M.D. Admitting Physician: Hector Lang M.D. Primary Care Physician: Primary Care Physician Carolee ABDUL NOTES DATE 04/24/2017 DISCUSSION Elvira has active alcohol withdrawal symptoms today. She is able to be up and about, participating in groups and activities. Her mood is anxious with a congruent affect. She is alert and fully oriented. Her memory and concentration are fair to good. Her thought processes are logical with no psychosis, no confusion, and no disorientation. She has no suicidal ideation. She appears to be sleeping well and according to staff is taking oral foods and fluids. She is participating appropriately in 12-step groups. ASSESSMENT Alcohol dependence. PLAN Continue with current treatment plan. Dictated by... Hector Lang M.D. H/arlette TD: 04/26/2017 10:49 JOB #: [id number] DEMETRI ABDUL NOTES Page 1 of 1 X Hector Lang MD PROGRESS NOTE
--- NOTE | ~2017-04-22 | DS ---
Unit #: [id number] #: [id number] Patient: ELVIRA GARVIN [id number] [facility] [address] [place] [address] [id number] I MR#: [id number] NAME: ELVIRA GARVIN ROOM: [facility] Age: 51 Sex: F Admission Date: 04/22/2017 : 1965 Discharge Date: 04/26/2017 Attending Physician: Hector Lang M.D. Primary Care Physician: Primary Care Physician No DISCHARGE SUMMARY REASON FOR ADMISSION Elvira is a 51-year-old woman, admitted to [facility] for intoxication, esophagitis, and hypokalemia. The patient states that she has multiple problems related to alcohol dependence and also an alcoholic. She has some thoughts of suicide and [facility] DIAGNOSTIC STUDIES Please see hospital chart. HOSPITAL COURSE The patient was admitted and placed on the alcohol detox protocol. Her psychiatric and medical medications were confirmed from her pharmacy and were continued. She tolerated her detox with no significant issues and her depression gradually improved. She had no evidence of delirium, hallucinations, or other psychotic effects. On the date of discharge, she was able to contract for safety, and had completed detox safely. DISCHARGE DIAGNOSES Pavilion I Alcohol dependence, withdrawal, uncomplicated. Major depressive disorder. Pavilion II No diagnosis. Pavilion III High cholesterol. GERD. Pavilion IV Pavilion V INSTRUCTIONS TO PATIENT Follow up with primary care physician and with CD/IOP. the patient was also referred to [facility] for long-term management. DISCHARGE MEDICATIONS 1. Paxil 40 mg daily for depression 2. Abilify 5 mg at bedtime for antidepressants and supplementation 3. BuSpar 15 mg three times a day for anxiety 4. Zocor 20 mg at bedtime for high cholesterol 5. Protonix 40 mg daily for GERD CONDITION AT DISCHARGE Improved. PROGNOSIS Unit #: [id number] #: [id number] Patient: ELVIRA GARVIN. DIET AND ACTIVITY Per primary care doctor Dictated by... Hector Lang M.D. JUDI/marcus TD: 06/14/2017 06:23 JOB #: [id number] DISCHARGE SUMMARY Page 1 of 1 X Hector Lang MD DISCHARGE SUMMARY
[~2017-04-22 14:00] MED LIST changes: +CHLORDIAZEPOXID25 MG PO; +FOLIC ACID PO; +MULTIVITAMINS1 EAC3 PO; +PAROXETINE HCL40 M1 PO; +THIAMINE HCL100 M1 PO
== END 2017-04-26 16:30 | disposition home or self-care (01) | DRG 897 ==
LOC: P2S 23:15
PROC: HZ2ZZZZ Detoxification Services for Substance Abuse Treatment (ICD-10-PCS; principal; 2017-04-22)
DX: F10.239 Alcohol dependence with withdrawal, unspecified (principal); K21.0 Gastro-esophageal reflux disease with esophagitis; E78.00 Pure hypercholesterolemia, unspecified

== ENCOUNTER 2017-05-10 07:27 | Inpatient (IN) | payer OTHER ==
--- NOTE | ~2017-05-10 | HP ---
Unit #: [id number] #: [id number] Patient: ELVIRA GARVIN [id number] [facility]. [place], [place] [address] [id number] MR#: [id number] NAME: ELVIRA GARVIN ROOM: Age: 51 Sex: F Admission Date: 05/10/2017 : 1965 Attending Physician: Caron Lemos M.D. Primary Care Physician: No Primary Care Physician HISTORY AND PHYSICAL CHIEF COMPLAINT Alcohol withdrawal. HISTORY OF PRESENT ILLNESS The patient is a 51-year-old female with past medical history of alcohol abuse, pancreatitis, GERD, depression, who presented to the emergency department for evaluation of the above. The patient states that she was in her usual state of health until yesterday when she developed nausea, vomiting, abdominal pain and chest pain. She states that the pain is in her upper abdomen. It is also in the mid chest. She describes it as "pain". There are no exacerbating or alleviating factors. She has had vomiting in association with the pain. She reports more than 10 bouts of nonbloody emesis. She denies any diarrhea. No urinary symptoms. No fever. Her last drink was yesterday around 6 p.m. She states that she typically a drinks a pint of vodka daily. In the emergency department, initial pulse and blood pressure were 131 and 157/97 respectively. Alcohol level is 142. Laboratory notable for CO2 of 14, anion gap of initially 35. The patient has been given a total of 3 mg of Ativan as well as two liters of normal saline. She is being admitted to [facility] for evaluation and further treatment. PAST MEDICAL HISTORY 1. Admission to [facility], April 19-2016, for alcohol withdrawal. Per the discharge summary, she was discharged to [facility]. 2. Pancreatitis. 3. GI bleed. 4. GERD. 5. Depression. PAST SURGICAL HISTORY 1. EGD, February 13, 2017, showed severe ulcerative esophagitis, small gastric cardia ulcer, normal duodenum. 2. Hip replacement. SOCIAL HISTORY The patient lives with her boyfriend. She is a daily drinker, typically a pint of vodka. She smokes a half pack of cigarettes daily. She denies illicit drug use. FAMILY HISTORY Unit #: [id number] #: [id number] Patient: ELVIRA GARVIN Notable for alcohol abuse. ALLERGIES No known allergies. HOME MEDICATIONS 1. Pantoprazole 40 mg daily. 2. Trazodone 50 mg at bedtime. 3. Paroxetine 40 mg daily. 4. BuSpar 15 mg t.i.d. 5. Neurontin 600 mg t.i.d. REVIEW OF SYSTEMS A complete review of systems is negative except as indicated in HPI. PHYSICAL EXAMINATION GENERAL APPEARANCE: The patient is a female who is awake and alert. VITAL SIGNS: Temperature 98.8. Pulse 131. Respirations 18. Blood pressure 157/97. Oxygen saturation 97% on room air. HEENT: The had is atraumatic. Mucous membranes are dry. NECK: Supple. Trachea is midline. CARDIOVASCULAR: Tachycardiac in the one teens. LUNGS: Clear to auscultation bilaterally with no increased work of breathing. ABDOMEN: Soft. She is mildly tender to palpation in the epigastric area. Bowel sounds are present in all four quadrants. EXTREMITIES: Nontender with no pedal edema. NEUROLOGIC: The patient is awake and alert. She is oriented x3. PSYCHIATRIC: The patient demonstrates poor insight and judgment. SKIN: Of examined areas is warm and dry. DIAGNOSTIC STUDIES LABORATORY: Complete blood count notable for hemoglobin of 14.4. Comprehensive metabolic panel notable for chloride of 87, CO2 of 14, anion gap of 35, AST 59, alkaline phosphatase 97, total protein 9.6. Amylase and lipase are normal. Blood alcohol level is 142. Arterial blood gas shows pH of 7.382, pCO2 30.6, pO2 87.6. Urinalysis notable for trace leukocyte esterase, 1+ protein, 5 to 10 WBCs, 1+ bacteria, moderate squamous cell. Urine tox screen is negative. CARDIOVASCULAR: EKG shows sinus tachycardia with a rate of 128 beats per minute. ASSESSMENT The patient is a 51-year-old female with: 1. Alcohol withdrawal. She has received a total of 3 mg of Ativan in the emergency department. 2. Metabolic acidosis with an initial anion gap of 35 likely alcoholic ketosis. 3. Possible urinary tract infection. 4. GERD. 5. History of pancreatitis. 6. Depression. 7. Tobacco abuse. PLAN 1. Admit to intermediate level. Unit #: [id number] #: [id number] Patient: ELVIRA GARVIN 2. Advanced to clear liquids as tolerated. 3. Alcohol withdrawal protocol. 4. annual giving manager and social work consult regarding alcohol abuse. 5. Check magnesium level. 6. Potassium/magnesium protocol. 7. Blood cultures x2. 8. Urine culture and sensitivity on urine in the lab. 9. Rocephin pending results of urine culture. 10. Serial cardiac enzymes. 11. Fasting lipid panel. 12. Librium 25 mg p.o. q.6 hours with first dose now. 13. Protonix. 14. Zofran p.r.n. 15. Repeat labs in the morning including magnesium. 16. SCDs for DVT prophylaxis. 17. Additional workup and consultants based on above. JOB #: [id number] Dictated by Charly Reeves/bobbi TD: 05/10/2017 14:03 JOB #: [id number] HISTORY AND PHYSICAL Page 1 of 1 X Alexa Singh MD X HISTORY AND PHYSICAL
--- NOTE | ~2017-05-10 | EKG ---
PATIENT: ELVIRA GARVIN UNIT #: [id number] Ventricular Rate: 128 BPM Atrial Rate: 128 BPM P-R Interval: 144 ms QRS Duration: 74 ms Q-T Interval: 326 ms QTC Calculation(Bezet): 475 ms P Scarbro: 66 degrees Calculated R Scarbro: 76 degrees Calculated T Scarbro: 50 degrees Diagnosis Line: Sinus tachycardia Diagnosis Line: Otherwise normal ECG Diagnosis Line: When compared with ECG of 19-APR-2017 08:38, Diagnosis Line: No significant change was found Diagnosis Line: Confirmed by MATILDE VELEZ MD ([id number]) on 05/12/2017 Diagnosis Line: 4:22:32 PM INTERPRETING MD: AGUSTIN PAUL
--- NOTE | ~2017-05-10 | CO ---
Unit #: [id number] #: [id number] Patient: ELVIRA GARVIN [id number] [address] [address] [id number] I MR#: [id number] NAME: ELVIRA GARVIN ROOM: [facility] Age: 51 Sex: F Admission Date: 05/10/2017 : 1965 Attending Physician: Alexa Singh M.D. Primary Care Physician: No Primary Care Physician CONSULTATION REPORT REASON FOR CONSULTATION Critical care management. CHIEF COMPLAINT Alcohol withdrawal. HISTORY OF PRESENT ILLNESS This is a 51-year-old female with past medical history of alcohol abuse, pancreatitis, gastroesophageal reflux disease, and depression. Presents with a complaint of nausea, vomiting, abdominal pain, and chest pressure and found to be in alcohol withdrawal. I am seeing the patient at bedside. Complaining of mild nausea and vomiting. She denies any headache, blurry vision. No chest pain. REVIEW OF SYSTEMS (1) . PAST MEDICAL HISTORY Alcohol abuse, pancreatitis, GI bleed, gastroesophageal reflux disease, and depression. SURGICAL HISTORY EGD and hip replacement. SOCIAL HISTORY Drinks alcohol, pint of vodka. Smokes 1/2 pack of cigarettes. MEDICATIONS 1. Protonix. 2. Trazodone. 3. Paroxetine. 4. BuSpar. 5. Neurontin. PHYSICAL EXAMINATION VITAL SIGNS: Temperature 98, pulse 67, respirations 12, and blood pressure is 130/72. NEUROLOGIC: Awake, alert, and oriented. No neuro deficit. HEENT: PERRLA. EOMI. NECK: Supple. No JVD. CHEST: Bilateral air entry. Bilateral mild rhonchi. GI: Nontender. Bowel sounds positive. EXTREMITIES: No edema. SKIN: No rashes. No ulcer. Unit #: [id number] #: [id number] Patient: ELVIRA GARVIN LYMPHATIC: No lymphadenopathy. DIAGNOSTIC STUDIES LABORATORY: (2) . ASSESSMENT AND PLAN 1. Alcohol withdrawal. 2. Metabolic acidosis. 3. Possible UTI. 4. Gastroesophageal reflux disease. 5. Pancreatitis. 6. Depression. 7. COPD. Plan is to continue alcohol withdrawal protocol, IV fluids, IV antibiotic for urinary tract infection, GI and DVT prophylaxes, ICU protocol. Will continue to monitor patient. Please see orders for detailed plan. Thank you very much for this consultation. Dictated by... Charly Gerber TD: 05/11/2017 09:07 JOB #: [id number] CONSULTATION REPORT Page 1 of 1 X Caleb Luna MD X CONSULTATION REPORT
--- NOTE | ~2017-05-10 | CR72 ---
[facility] A Service of [facility] & [facility] RADIOLOGY TEXT RESULTS PATIENT: ELVIRA GARVIN LOCATION: [address] : [birth year] UNIT #: [id number] AGE: [address]: Alexa Singh MD SEX: F ORDER DR: [id number] [facility] [address] [place], [place] [address] [id number] I MR#: [id number] Acc #: [id number] NAME: ELVIRA GARVIN : 1965 SEX: F STUDY DATE/TIME: 05/11/2017 5:20 UNIT: [facility] ROOM: [facility] STUDY DESCRIPTION: CR Chest Single View Portable Attending Physician: Alexa Singh M.D. Ordering Physician: Caleb Luna M.D. Primary Care Physician: No Primary Care Physician MEDICAL IMAGING REPORT This report is preliminary unless electronic signature is present EXAM Portable chest INDICATION Respiratory distress for 19 days. FINDINGS A portable view of the chest was obtained. The heart size and vascularity are normal. The lungs are clear. The bones are unremarkable. IMPRESSION No active disease. Dictated by... Sincere Martinez M.D. THIS IS AN ELECTRONICALLY VERIFIED REPORT Sincere Martinez M.D. at 05/11/2017 1:31 PM SAYRA/siddharth TD: 05/11/2017 13:19 JOB #: [id number] MEDICAL IMAGING REPORT Page 1 of 1 COPY
--- NOTE | ~2017-05-10 | DS ---
Unit #: [id number] #: [id number] Patient: ELVIRA GARVIN [id number] [address] [place], [place] [address] [id number] I MR#: [id number] NAME: ELVIRA GARVIN ROOM: 325 Age: 51 Sex: F Admission Date: 05/10/2017 : 1965 Discharge Date: 05/13/2017 Attending Physician: Xiomara Yeh M.D. Primary Care Physician: Carolee Primary Care Physician DISCHARGE SUMMARY DIAGNOSIS ON ADMISSION Alcohol withdrawal. DIAGNOSES ON DISCHARGE 1. Alcohol withdrawal, improved. 2. Chronic obstructive pulmonary disease. 3. History of pancreatitis. 4. History of gastrointestinal bleeding. 5. Gastroesophageal reflux disease. 6. Depression. 7. History of ulcerative esophagitis. CONSULTATIONS Dr. Luna in track hoe operator consult. DIAGNOSTIC STUDIES LABS: The patient's creatinine is 0.4, sodium 141, potassium 3.5. AST and ALT are within normal limits. The patient's serum alcohol level on admission was 142. WBC is 3.5, hemoglobin 10.8, platelet count 151. The patient's urine culture revealed greater than 100,000 normal urogenital alvaro present. Blood culture did not reveal any growth. Troponin is less than 0.01. HOSPITAL COURSE This 51-year-old female was admitted to [facility] with alcohol withdrawal. She was admitted in ICU and was started on CIWA protocol. Patient's condition gradually improved, and she was transferred to the floor. She had a urine culture done, which did reveal normal urogenital alvaro. The patient (1) now. She is comfortable. There is no fever and denies any urinary complaints and wants to go home. RECOMMENDATIONS ON DISCHARGE 1. Condition is stable. 2. Activity is as tolerated. DISCHARGE MEDICATIONS 1. Neurontin 600 mg p.o. t.i.d., which is a home dose. 2. Paxil 40 mg p.o. daily. 3. Trazodone 50 mg p.o. q.h.s. 4. BuSpar 15 mg p.o. t.i.d. 5. Protonix 40 mg p.o. daily. 6. Multivitamin 1 tablet p.o. daily OTC. 7. Thiamine 100 mg p.o. daily and folic acid 1 mg p.o. daily OTC. Unit #: [id number] #: [id number] Patient: ELVIRA GARVIN FOLLOW-UP 1. Patient is advised to follow up with primary care physician in one week and have a CBC and BMP done. 2. Patient is advised to follow up with her psychiatrist in 2 weeks to follow up on her psychiatric medicines. 3. Patient is also advised to follow up with [facility] regarding alcohol abuse. NOTE: The plan was discussed in detail with the patient, who showed complete understanding. Dictated by... Charly Jaffe TD: 05/13/2017 13:55 JOB #: [id number] CC: [facility]. DISCHARGE SUMMARY Page 1 of 1 X Xiomara Yeh MD X DISCHARGE SUMMARY
[2017-05-10 08:05] LABS: BASOPHIL% 0.3 % (0-2.5); HEMATOCRIT 45.7 % (35.0-45.0); HEMOGLOBIN 14.4 gm/dL (12.0-16.0); LYMPHOCYTE# 1.1 X10e3 (1.0-3.5); LYMPHOCYTE% 15.4 % (17.0-45.0); MEAN CELL VOLUME 86.1 FL (83-96); MEAN CORPUSCULAR HEMOGLOBIN 27.2 PG (28-34); MEAN CORPUSCULAR HGB CONC 31.6 g/dL (30-36); MEAN PLATELET VOLUME 9.3 FL (6.5-11.5); MONOCYTE# 0.2 X10e3 (0-1.0); MONOCYTE% 3.4 % (3.0-12.0); NEUTROPHIL# 5.8 X10e3 (1.5-7.1); NEUTROPHIL% 80.9 % (40-75); PLATELET COUNT 272 X10e3 (140-420); RED CELL DISTRIBUTION WIDTH 19.9 % (11.0-15.5); WHITE BLOOD COUNT 7.1 X10e3 (4.0-10.5)
[2017-05-10 08:06] LABS: DIFF IND NO
[2017-05-10 08:42] LABS: ALBUMIN SERUM 4.9 g/dL (3.5-5.0); BILIRUBIN,TOTAL 0.8 mg/dL (0.2-2.0); BUN/CREATININE RATIO 11.25; CALCIUM SERUM 9.2 mg/dL (8.4-10.2); CREATININE SERUM 0.8 mg/dL (0.6-1.4); GLOM FILT RATE Estimated 86.6 mL/min (>60); POTASSIUM 4.6 mmol/L (3.5-5.1); PROTEIN TOTAL SERUM 9.6 g/dL (6.0-8.3)
[2017-05-10 09:40] LABS: ARTERIAL BLD GAS O2 SATURATION 96.3 % (90.0-100.0); ARTERIAL BLOOD GAS ALLEN TEST N; ARTERIAL BLOOD GAS ART SITE LEFT RADIAL; ARTERIAL BLOOD GAS CARBOXY HB 2.2 %sat (0.0-9.0); ARTERIAL BLOOD GAS DELIVERY ROOM AIR; ARTERIAL BLOOD GAS HCO3 18.2 mmol/L; ARTERIAL BLOOD GAS MET HB 0.7 %sat (0.0-2.0); ARTERIAL BLOOD GAS PCO2 30.6 mmHg (35.0-45.0); ARTERIAL BLOOD GAS PO2 87.6 mmHg (80.0-100); ARTERIAL BLOOD GAS pH 7.382 (7.350-7.450); ARTERIAL DRAW? YES
[2017-05-10 11:43] LABS: URINE SOURCE CLEAN CATCH
[2017-05-10 11:56] LABS: URINE APPEARANCE CLOUDY; URINE BILIRUBIN NEG (NEG); URINE BLOOD NEG (NEG); URINE COLOR YELLOW; URINE GLUCOSE NEG (NEG); URINE KETONE 3+ (NEG); URINE LEUKOCYTE ESTERASE TRACE (NEG); URINE NITRATE NEG (NEG); URINE PH 5.5 (5-8); URINE PROTEIN 1+ (NEG); URINE SPECIFIC GRAVITY 1.021 (1.003-1.035)
[2017-05-10 11:59] LABS: CULTURE INDICATED? YES; URBCS1 AUWI 0-2 /[HPF] (0-2); URINE BACTERIA AUWI 1+ (NEGATIVE); URINE SQUAMOUS EPITHELIAL CELL MOD /[HPF]
[2017-05-10 12:06] LABS: BUN/CREATININE RATIO 13.33; CALCIUM SERUM 7.7 mg/dL (8.4-10.2); CREATININE SERUM 0.6 mg/dL (0.6-1.4); POTASSIUM 4.2 mmol/L (3.5-5.1)
[2017-05-10 12:13] LABS: AMPHETAMINE NEG (NEG); BARBITURATES NEG (NEG); BENZODIAZEPINES NEG (NEG); COCAINE NEG (NEG); MARIJUANA NEG (NEG); OPIATES NEG (NEG); TRICYCLIC ANTIDEPRESSANTS NEG (NEG); U METHADONE NEG (NEG)
[2017-05-10] MEDS ORDERED: PAXIL PO (12:25)
[2017-05-10] MEDS ORDERED: PATIENT'S PHARMACY (12:27)
[2017-05-10 16:28] LABS: %MB 4.8 % (0.0-4.0); MB 2.9 ng/ml
[2017-05-11 04:09] LABS: BASOPHIL% 0.5 % (0-2.5); EOSINOPHIL# 0.1 X10e3 (0-0.7); EOSINOPHIL% 1.3 % (0.0-7.0); HEMATOCRIT 35.9 % (35.0-45.0); LYMPHOCYTE% 38.9 % (17.0-45.0); MEAN CELL VOLUME 85.8 FL (83-96); MEAN CORPUSCULAR HEMOGLOBIN 26.5 PG (28-34); MEAN CORPUSCULAR HGB CONC 30.9 g/dL (30-36); MEAN PLATELET VOLUME 9.4 FL (6.5-11.5); MONOCYTE# 0.4 X10e3 (0-1.0); MONOCYTE% 7.6 % (3.0-12.0); NEUTROPHIL# 2.6 X10e3 (1.5-7.1); NEUTROPHIL% 51.7 % (40-75); PLATELET COUNT 171 X10e3 (140-420); RED BLOOD COUNT 4.19 X10e (3.90-5.30); RED CELL DISTRIBUTION WIDTH 19.9 % (11.0-15.5); WHITE BLOOD COUNT 5.1 X10e3 (4.0-10.5)
[2017-05-11 04:18] LABS: ARTERIAL BLD GAS O2 SATURATION 96.4 % (90.0-100.0); ARTERIAL BLOOD GAS ALLEN TEST NORMAL; ARTERIAL BLOOD GAS ART SITE RIGHT RADIAL; ARTERIAL BLOOD GAS CARBOXY HB 1.5 %sat (0.0-9.0); ARTERIAL BLOOD GAS DELIVERY NASAL CANNULA; ARTERIAL BLOOD GAS HCO3 30.1 mmol/L; ARTERIAL BLOOD GAS MET HB 1.2 %sat (0.0-2.0); ARTERIAL BLOOD GAS PCO2 41.3 mmHg (35.0-45.0); ARTERIAL BLOOD GAS PO2 76.4 mmHg (80.0-100); ARTERIAL DRAW? YES
[2017-05-11 04:28] LABS: HEMOGLOBIN 11.1 gm/dL (12.0-16.0)
[2017-05-11 04:30] LABS: DIFF IND NO
[2017-05-11 04:34] LABS: ALBUMIN SERUM 3.2 g/dL (3.5-5.0); BILIRUBIN,TOTAL 0.6 mg/dL (0.2-2.0); CALCIUM SERUM 7.9 mg/dL (8.4-10.2); CREATININE SERUM 0.5 mg/dL (0.6-1.4); GLOM FILT RATE Estimated 113.7 mL/min (>60); POTASSIUM 3.4 mmol/L (3.5-5.1)
[2017-05-11 14:31] LABS: BASOPHIL% 0.3 % (0-2.5); EOSINOPHIL# 0.1 X10e3 (0-0.7); EOSINOPHIL% 1.4 % (0.0-7.0); HEMATOCRIT 34.2 % (35.0-45.0); HEMOGLOBIN 10.8 gm/dL (12.0-16.0); LYMPHOCYTE# 1.2 X10e3 (1.0-3.5); LYMPHOCYTE% 30.1 % (17.0-45.0); MEAN CELL VOLUME 85.4 FL (83-96); MEAN CORPUSCULAR HEMOGLOBIN 27.1 PG (28-34); MEAN CORPUSCULAR HGB CONC 31.7 g/dL (30-36); MEAN PLATELET VOLUME 8.9 FL (6.5-11.5); MONOCYTE# 0.3 X10e3 (0-1.0); MONOCYTE% 6.9 % (3.0-12.0); NEUTROPHIL# 2.5 X10e3 (1.5-7.1); NEUTROPHIL% 61.3 % (40-75); PLATELET COUNT 151 X10e3 (140-420); RED CELL DISTRIBUTION WIDTH 19.6 % (11.0-15.5)
[2017-05-11 15:04] LABS: DIFF IND NO
[2017-05-11 15:07] LABS: ALBUMIN SERUM 3.1 g/dL (3.5-5.0); ALKALINE PHOSPHATASE 66 U/L (32-92); ALT (SGPT) 21 U/L (10-40); AST (SGOT) 41 U/L (10-42); BILIRUBIN,TOTAL 0.5 mg/dL (0.2-2.0); CALCIUM SERUM 7.9 mg/dL (8.4-10.2); CARBON DIOXIDE 26 mmol/L (22-31); CHLORIDE 104 mmol/L (100-111); CHOLESTEROL 167 mg/dL (0-200); CREATININE SERUM 0.4 mg/dL (0.6-1.4); GLOM FILT RATE Estimated 122.3 mL/min (>60); GLUCOSE FASTING 126 mg/dL (70-110); HDL CHOLESTEROL 89 mg/dL (35-95); LDL CHOLESTEROL 69 mg/dL (-130); LDL/HDL RATIO 1 RATIO (0-4); PROTEIN TOTAL SERUM 5.8 g/dL (6.0-8.3); SODIUM 136 mmol/L (135-145); TRIGLYCERIDES 45 mg/dL (10-160)
[2017-05-11 15:10] LABS: BLOOD UREA NITROGEN <5 mg/dL (9-23)
[2017-05-12 06:24] LABS: MAGNESIUM 1.5 mg/dL (1.6-3.0); POTASSIUM 3.6 mmol/L (3.5-5.1)
[2017-05-13 07:56] LABS: HEMATOCRIT 34.5 % (35.0-45.0); HEMOGLOBIN 10.8 gm/dL (12.0-16.0); MEAN CELL VOLUME 86.3 FL (83-96); MEAN CORPUSCULAR HGB CONC 31.4 g/dL (30-36); MEAN PLATELET VOLUME 9.7 FL (6.5-11.5); RED CELL DISTRIBUTION WIDTH 19.7 % (11.0-15.5); WHITE BLOOD COUNT 3.5 X10e3 (4.0-10.5)
[2017-05-13 08:19] LABS: CREATININE SERUM 0.4 mg/dL (0.6-1.4); GLOM FILT RATE Estimated 122.3 mL/min (>60); MAGNESIUM 1.4 mg/dL (1.6-3.0); POTASSIUM 3.5 mmol/L (3.5-5.1)
== END 2017-05-13 19:03 | disposition home or self-care (01) | DRG 897 ==
LOC: CED 07:27 → CEDOF 13:50 → CICCU3 13:50 → CED 14:09 → CEDOF 14:09 → CICCU2 15:49 → CICCU3 19:22 → C3A PCU 05-11 18:01
PROVIDERS: Family Medicine; Internal Medicine; Nurse Practitioner Family
DX: F10.239 Alcohol dependence with withdrawal, unspecified (principal); E87.2 Acidosis; E88.89 Other specified metabolic disorders; N39.0 Urinary tract infection, site not specified; J44.9 Chronic obstructive pulmonary disease, unspecified; K21.9 Gastro-esophageal reflux disease without esophagitis; F32.9 Major depressive disorder, single episode, unspecified; F17.210 Nicotine dependence, cigarettes, uncomplicated; Z71.6 Tobacco abuse counseling; F10.20 Alcohol dependence, uncomplicated; E87.6 Hypokalemia; E83.42 Hypomagnesemia; Y90.6 Blood alcohol level of 120-199 mg/100 ml
CPT/HCPCS: 36415; 36600; 51701; 71010; 80048; 80053; 80061; 80307; 81003; 82150; 82550; 82553; 82803; 83690; 83735; 84132; 84484; 85025; 85027; 87040; 87086; 93005; 96361; 96365; 96375; 99285; C9113; G0480; J0696; J2060; J2405; J3411; J3475; J7042

== ENCOUNTER 2017-06-27 08:42 | Inpatient (IN) | payer OTHER ==
[~2017-06-27] VITALS: Ht 157.5 cm; Wt 60.9 kg
--- NOTE | ~2017-06-27 | HP ---
Unit #: [id number] #: [id number] Patient: ELVIRA GARVIN [id number] [place], [place] [address] [id number] I MR#: [id number] NAME: ELVIRA GARVIN ROOM: 453 Age: 51 Sex: F Admission Date: 06/27/2017 : 1965 Attending Physician: Erasmo Miguel M.D. HISTORY AND PHYSICAL CHIEF COMPLAINT Right hip dislocation. HISTORY OF PRESENT ILLNESS The patient is a 51-year-old female with a history of alcohol abuse, pancreatitis, GERD, and depression, who presented to the [facility] post fall. The patient was diagnosed with a right hip dislocation, and the patient was transferred to [facility] for reduction by Dr. Mccabe. Patient had unsuccessful reduction via Orthopedics and is being admitted for open reduction and internal fixation. The patient is being admitted to the medicine service for history of medical problems. The patient stated that patient had four beers yesterday before the fall, and she was climbing on the rocks and she fell down on the floor. The patient denies any loss of consciousness and denies any nausea and vomiting. The patient continues to drink a pint of vodka every day. Patient has had multiple admissions in the past for similar reasons. She denies chills, nausea, vomiting, fever, or headache. The patient has multiple insect bites and states that patient has been camping for the last few days. PAST MEDICAL HISTORY 1. Alcohol withdrawal. 2. Pancreatitis. 3. Gastrointestinal bleed. 4. Gastroesophageal reflux disease. 5. Depression. PAST SURGICAL HISTORY 1. EGD. 2. Hip replacement. SOCIAL HISTORY The patient lives with her boyfriend at the time. She is a daily drinker, typically a pint of vodka. She smokes a half pack of cigarettes daily. She denies any illicit drug abuse. FAMILY HISTORY Alcohol abuse. ALLERGIES No known drug allergies. Unit #: [id number] #: [id number] Patient: ELVIRA GARVIN HOME MEDICATIONS 1. Pantoprazole. 2. Desyrel. 3. Paxil. 4. BuSpar. 5. Neurontin. 6. Multivitamin. 7. Folic acid. 8. Thiamine. REVIEW OF SYSTEMS Positive for pain in the hip. Positive for fall. Negative for chest pain, negative for headache, negative for nausea and vomiting, and negative for cough. Other systems reviewed and are none. PHYSICAL EXAMINATION GENERAL: Patient is lying in bed not in acute distress. VITAL SIGNS: Temperature is 97.8, pulse 96, respirations 18, and blood pressure 145/89. HEENT: Head atraumatic, normocephalic. Pupils equal, round, and reactive to light and accommodation. Extraocular movements are intact. Dry mucous membranes. NECK: Supple. LUNGS: Decreased air entry at the bases. HEART: Regular rate and rhythm, tachycardic. ABDOMEN: Soft. Positive bowel sounds. EXTREMITIES: Patient has pain at the right hip with a healed surgical scar and multiple insect bites of the lower extremities. NEUROLOGIC: Alert, awake, and oriented. Positive for resting tremors. DIAGNOSTIC STUDIES LABORATORY: None. Patient is waiting for stat labs, CBC, CMP, UA, and urine toxicology. IMAGING: X-ray of the dislocation of the femoral component of the right hip replacement is similar to position on the film at 0227 hours. ASSESSMENT 1. Alcohol withdrawal. 2. Right hip dislocation. PLAN Admit the patient to Medicine inpatient with telemetry. Continue with CIWA protocol. Follow with stat labs and Orthopedics for the ORIF. Will follow up the patient to clear for surgery once the workup is back, repeat the labs again in the morning, and further recommendations will follow. Dictated by Charly Long TD: 06/27/2017 15:20 JOB #: [id number] Unit #: [id number] #: [id number] Patient: ELVIRA GARVIN HISTORY AND PHYSICAL Page 1 of 1 X ERASMO MIGUEL MD HISTORY AND PHYSICAL
--- NOTE | ~2017-06-27 | OR ---
Unit #: [id number] #: [id number] Patient: ELVIRA GARVIN [id number] [facility]. [place], [place] [address] [id number] I MR#: [id number] NAME: ELVIRA GARVIN ROOM: 228 Date of Procedure: 06/28/2017 Admission Date: 06/27/2017 Surgeon: Stone Starr M.D. : 1965 Attending Physician: Mylene Ellsworth M.D. Primary Care Physician: Primary Care Physician No OPERATIVE REPORT PREOPERATIVE DIAGNOSIS Dislocated right total hip. POSTOPERATIVE DIAGNOSIS Dislocated right total hip. PROCEDURE PERFORMED Attempted closed reduction, which failed and then open reduction of the right hip. DESCRIPTION OF PROCEDURE The patient was brought to the operating room, given general anesthetic. She was placed on the fracture table. She was then placed in traction, and despite a large amount of traction, we could not reduce the hip replacement, so we abandoned this. The patient was transferred to the operating room table and placed in decubitus position with the right side up. IV antibiotics were administered. The hip was prepped and draped, and after this was done, the skin incision was made using the old skin incision, and a posterior approach was carried out to the hip. The capsule was opened and the patient did have metallosis present from where the femoral neck was impinging on the metal cup. She had a dplkmvz-ck-vvtrtjt bearing surface, but the ceramic was intact. We then used a hip skid to reduce the hip. It then seemed fairly stable. The wound was irrigated with a dilute Betadine solution. The ropivacaine mixture was injected. The capsule was repaired with 0 Ethibond. The fascia was closed with a running STRATAFIX suture and then the subcutaneous was closed with 0 and 2-0 Vicryl and luis armando in the skin. Sterile dressing applied. Abduction pillow positioned, and her general anesthetic reversed. LAB ANALYST Rob Yañez. BLOOD LOSS About 100 mL. Dictated by... Stone Starr M.D. BISHOP/zenial Unit #: [id number] #: [id number] Patient: ELVIRA GARVIN TD: 06/30/2017 12:11 JOB #: [id number] OPERATIVE REPORT Page 1 of 1 X Stone Starr MD PROCEDURE OPERATIVE NOTE
--- NOTE | ~2017-06-27 | OR ---
Unit #: [id number] #: [id number] Patient: ELVIRA LINARES [id number] [facility]. [place], [place] [address] [id number] I MR#: [id number] NAME: ELVIRA LINARES ROOM: 228 Date of Procedure: Admission Date: 06/27/2017 Surgeon: Yovani Mccabe M.D. : 1965 Attending Physician: Kenan Mayfield M.D. OPERATIVE REPORT PREOPERATIVE DIAGNOSIS Right posterior prosthetic hip dislocation. POSTOPERATIVE DIAGNOSIS Right posterior prosthetic hip dislocation. PROCEDURE PERFORMED Attempted right hip closed reduction. IMCU NURSE Clara Topete. ANESTHESIA General. INDICATIONS FOR PROCEDURE Ms. Linares is a 51-year-old female with history of a previous right total hip arthroplasty done in [place] in 2011. She has had one subsequent dislocation and apparent successful closed reduction. She now has been referred from [facility] with a persistent right hip dislocation, which failed attempted closed reduction in the emergency department. X-rays have confirmed a right hip dislocation. Attempted closed reduction is indicated. This has been discussed with the patient and she elects to proceed. DESCRIPTION OF PROCEDURE The patient was brought to the operating room on her hospital stretcher. A general anesthetic with an LMA was induced. An attempted closed reduction was performed after administration of succinylcholine. Despite adequate paralysis and relaxation, we were unable to achieve a closed reduction. Multiple attempts were performed and intraoperative x-rays were obtained. Ultimately, we had elected to leave the hip in its dislocated position and plan for possible open reduction in the future. DISPOSITION Aroused from anesthesia and transported to the recovery room in stable condition. We will plan to consult a total hip arthroplasty surgeon for further management and recommendations. Dictated by... Yovani Mccabe M.D. Unit #: [id number] #: [id number] Patient: ELVIRA LINARES KLH/zenial TD: 06/27/2017 19:04 JOB #: [id number] OPERATIVE REPORT Page 1 of 1 X Yovani Mccabe MD PROCEDURE OPERATIVE NOTE
--- NOTE | ~2017-06-27 | DS ---
Unit #: [id number] #: [id number] Patient: ELVIRA GARVIN [id number] [address] [id number] I MR#: [id number] NAME: ELVIRA GARVIN ROOM: 228 Age: 51 Sex: F Admission Date: 06/27/2017 : 1965 Discharge Date: Attending Physician: Mylene Ellsworth M.D. Primary Care Physician: No Primary Care Physician DISCHARGE SUMMARY DISCHARGE DIAGNOSES 1. Dislocated right total hip status post closed reduction, which failed, and then open reduction of right hip done. 2. Alcohol dependence with alcohol withdrawal. 3. History of pancreatitis. 4. History of gastrointestinal bleed. 5. Gastroesophageal reflux disease. 6. Depression. 7. Poison martine. CONSULTATIONS Dr. Starr. PROCEDURES The patient had attempted closed reduction, which failed, and then open reduction of the right hip done. DIAGNOSTIC TESTING LAB DATA: Sodium 140, potassium 4.4, creatinine 0.6, magnesium 1.5. WBC 4.7, hemoglobin 9.3, platelets 211. ALLERGIES None. DISCHARGE MEDICATIONS 1. Prednisone tapering dose starting with 40 mg p.o. daily, taper 10 mg every 3 days until off. 2. Magnesium oxide 400 p.o. b.i.d. 3. Neurontin 600 p.o. t.i.d. 4. Paxil 40 p.o. daily. 5. Trazodone 50 p.o. daily. 6. BuSpar 15 mg p.o. t.i.d. 7. Nicotine 21 mg transdermal daily. 8. Multivitamin 1 tablet daily. 9. Aspirin 325 p.o. daily. 10. Percocet 10 mg 1 tablet q.4 p.r.n. pain. 11. Protonix 40 daily. 12. Folic acid 1 mg daily. 13. Thiamine 100 daily. HOSPITALIZATION COURSE A 51 year old admitted because of hip dislocation on the right side. The patient was seen by orthopedics. The patient had closed reduction, which failed. Later open reduction was done. Currently wound looks okay. Patient Unit #: [id number] #: [id number] Patient: ELVIRA GARVIN was seen by orthopedics. They are okay for the patient to be released to rehab. Follow with Dr. Starr in 2-3 weeks' time. Skin luis armando to be removed in 2 weeks' time. Postop recommendations as per orthopedics. Alcohol dependence with withdrawal. The patient was on alcohol withdrawal protocol. Currently mildly tremulous off protocol. Patient needs to see [facility] upon discharge from rehab for possible alcohol rehab later. Poison martine. Patient is on prednisone. Currently resolved. Continue tapering dose of prednisone. DISCHARGE PLAN The patient will be discharged to rehab. Dictated by... Charly Modi/eliu TD: 07/01/2017 14:31 JOB #: [id number] DISCHARGE SUMMARY Page 1 of 1 X Mylene Ellsworth MD X DISCHARGE SUMMARY
--- NOTE | ~2017-06-27 | CR145 ---
[facility] A Service of [facility] RADIOLOGY TEXT RESULTS PATIENT: ELVIRA GARVIN LOCATION: C4 453 : [birth year] UNIT #: [id number] AGE: [address]: BALDEV MIGUEL MD SEX: F ORDER DR: [id number] [facility] [address] [facility]. [place], [place] [address] [id number] I MR#: [id number] Acc #: [id number] NAME: ELVIRA GARVIN : 1965 SEX: F STUDY DATE/TIME: 06/27/2017 11:51 UNIT: [id number] ROOM: [facility] STUDY DESCRIPTION: CR Hip 1 View Rt Attending Physician: Baldev Miguel M.D. Ordering Physician: Yovani Mccabe M.D. Primary Care Physician: Primary Care Physician No MEDICAL IMAGING REPORT This report is preliminary unless electronic signature is present EXAM Right hip 06/27/2017 1151 hours HISTORY Closed reduction intraoperatively today. History of dislocation today. COMPARISON 06/27/2017 at 0227 hours. FINDINGS Two views of the right hip demonstrate persistent superior dislocation of the femoral component of the right hip replacement. No fracture seen. IMPRESSION Films at 1151 hours demonstrate persistent dislocation of the femoral component of the right hip replacement similar to position on the film at 0227 hours. COMMENT The findings were telephoned to the patient's nurse in recovery at [facility]. She stated that the physician's were aware of this finding and were planning to do an open reduction today. Dictated by... Cordelia Frausto M.D. THIS IS AN ELECTRONICALLY VERIFIED REPORT Cordelia Frausto M.D. at 06/27/2017 2:31 PM CUAUHTEMOC/liam TD: 06/27/2017 13:48 JOB #: [id number] [facility] A Service of [facility] RADIOLOGY TEXT RESULTS PATIENT: ELVIRA GARVIN LOCATION: [facility] 453 : [birth year] UNIT #: [id number] AGE: [address]: BALDEV MIGUEL MD SEX: F ORDER DR: MEDICAL IMAGING REPORT Page 1 of 1 COPY
[~2017-06-27 08:42] MED LIST changes: +PATIENT'S PHARMACY; +PAXIL PO
[2017-06-27] MEDS ORDERED: PANTOPRAZOLE SO40 MG PO (12:25)
[2017-06-27] MEDS ORDERED: DESYREL50 MG PO (12:25)
[2017-06-27] MEDS ORDERED: NEURONTIN600 MG PO (12:27)
[2017-06-27] MEDS ORDERED: BUSPAR15 M1 PO (12:27)
[2017-06-27] MEDS ORDERED: FOLIC ACID1 MG PO (13:31)
[2017-06-27] MEDS ORDERED: MULTI VITAMIN1 EACH PO (13:31)
[2017-06-27] MEDS ORDERED: THIAMINE HCL100 M1 PO (13:31)
[2017-06-27 14:57] LABS: HEMOGLOBIN 10.7 gm/dL (12.0-16.0); MEAN CELL VOLUME 86.4 FL (83-96); MEAN CORPUSCULAR HEMOGLOBIN 28.1 PG (28-34); MEAN CORPUSCULAR HGB CONC 32.6 g/dL (30-36); MEAN PLATELET VOLUME 8.4 FL (6.5-11.5); RED BLOOD COUNT 3.82 X10e (3.90-5.30); RED CELL DISTRIBUTION WIDTH 18.9 % (11.0-15.5); WHITE BLOOD COUNT 3.9 X10e3 (4.0-10.5)
[2017-06-27 15:10] LABS: URINE APPEARANCE CLEAR; URINE BILIRUBIN NEG (NEG); URINE BLOOD NEG (NEG); URINE COLOR YELLOW; URINE GLUCOSE NEG (NEG); URINE KETONE 1+ (NEG); URINE LEUKOCYTE ESTERASE NEG (NEG); URINE NITRATE NEG (NEG); URINE PH 5.5 (5-8); URINE PROTEIN NEG (NEG); URINE UROBILINOGEN 0.2 MG/DL (NEG)
[2017-06-27 15:18] LABS: ALBUMIN SERUM 3.6 g/dL (3.5-5.0); BILIRUBIN,TOTAL 0.9 mg/dL (0.2-2.0); CALCIUM SERUM 8.3 mg/dL (8.4-10.2); CREATININE SERUM 0.5 mg/dL (0.6-1.4); GLOM FILT RATE Estimated 113.7 mL/min (>60); PROTEIN TOTAL SERUM 6.9 g/dL (6.0-8.3)
[2017-06-27 15:31] LABS: AMPHETAMINE NEG (NEG); BARBITURATES POS (NEG); BENZODIAZEPINES POS (NEG); COCAINE NEG (NEG); MARIJUANA NEG (NEG); OPIATES POS (NEG); TRICYCLIC ANTIDEPRESSANTS NEG (NEG); U METHADONE NEG (NEG)
[2017-06-27 16:07] LABS: THYROID STIMULATING HORMONE 1.37 uIU/ml (0.34-5.60)
[2017-06-27 16:14] LABS: FREE THYROXIN (T4) 1.04 ng/dL (0.58-1.64)
[2017-06-28 02:57] LABS: HEMATOCRIT 31.3 % (35.0-45.0); HEMOGLOBIN 9.8 gm/dL (12.0-16.0); MEAN CORPUSCULAR HEMOGLOBIN 27.3 PG (28-34); MEAN CORPUSCULAR HGB CONC 31.4 g/dL (30-36); MEAN PLATELET VOLUME 9.4 FL (6.5-11.5); RED BLOOD COUNT 3.6 X10e (3.90-5.30); RED CELL DISTRIBUTION WIDTH 18.8 % (11.0-15.5); WHITE BLOOD COUNT 4.7 X10e3 (4.0-10.5)
[2017-06-28 03:23] LABS: BUN/CREATININE RATIO 13.33; CALCIUM SERUM 8.1 mg/dL (8.4-10.2); CREATININE SERUM 0.6 mg/dL (0.6-1.4); POTASSIUM 3.5 mmol/L (3.5-5.1)
[2017-06-29 03:18] LABS: BASOPHIL# 0.1 X10e3 (0-0.3); EOSINOPHIL# 0.1 X10e3 (0-0.7); EOSINOPHIL% 2.7 % (0.0-7.0); HEMATOCRIT 29.4 % (35.0-45.0); HEMOGLOBIN 9.4 gm/dL (12.0-16.0); LYMPHOCYTE# 0.9 X10e3 (1.0-3.5); LYMPHOCYTE% 19.4 % (17.0-45.0); MEAN CELL VOLUME 87.7 FL (83-96); MEAN CORPUSCULAR HEMOGLOBIN 28.1 PG (28-34); MEAN CORPUSCULAR HGB CONC 32.1 g/dL (30-36); MEAN PLATELET VOLUME 9.5 FL (6.5-11.5); MONOCYTE# 0.6 X10e3 (0-1.0); MONOCYTE% 12.6 % (3.0-12.0); NEUTROPHIL% 63.3 % (40-75); PLATELET COUNT 207 X10e3 (140-420); RED BLOOD COUNT 3.35 X10e (3.90-5.30); RED CELL DISTRIBUTION WIDTH 19.2 % (11.0-15.5); WHITE BLOOD COUNT 4.7 X10e3 (4.0-10.5)
[2017-06-29 03:20] LABS: DIFF IND NO
[2017-06-29 03:46] LABS: CALCIUM SERUM 7.9 mg/dL (8.4-10.2); CARBON DIOXIDE 29 mmol/L (22-31); CHLORIDE 106 mmol/L (100-111); CREATININE SERUM 0.5 mg/dL (0.6-1.4); GLOM FILT RATE Estimated 113.7 mL/min (>60); GLUCOSE FASTING 117 mg/dL (70-110); MAGNESIUM 1.4 mg/dL (1.6-3.0); POTASSIUM 3.8 mmol/L (3.5-5.1); SODIUM 142 mmol/L (135-145)
[2017-06-29 03:48] LABS: BLOOD UREA NITROGEN <5 mg/dL (9-23)
[2017-06-30 03:37] LABS: BASOPHIL% 0.8 % (0-2.5); EOSINOPHIL# 0.1 X10e3 (0-0.7); EOSINOPHIL% 1.8 % (0.0-7.0); HEMATOCRIT 28.8 % (35.0-45.0); HEMOGLOBIN 9.3 gm/dL (12.0-16.0); LYMPHOCYTE# 1.2 X10e3 (1.0-3.5); LYMPHOCYTE% 25.1 % (17.0-45.0); MEAN CELL VOLUME 87.6 FL (83-96); MEAN CORPUSCULAR HEMOGLOBIN 28.3 PG (28-34); MEAN CORPUSCULAR HGB CONC 32.4 g/dL (30-36); MEAN PLATELET VOLUME 9.4 FL (6.5-11.5); MONOCYTE# 0.6 X10e3 (0-1.0); MONOCYTE% 13.6 % (3.0-12.0); NEUTROPHIL# 2.7 X10e3 (1.5-7.1); NEUTROPHIL% 58.7 % (40-75); PLATELET COUNT 211 X10e3 (140-420); RED BLOOD COUNT 3.28 X10e (3.90-5.30); RED CELL DISTRIBUTION WIDTH 19.1 % (11.0-15.5); WHITE BLOOD COUNT 4.7 X10e3 (4.0-10.5)
[2017-06-30 03:38] LABS: DIFF IND NO
[2017-06-30 04:01] LABS: BUN/CREATININE RATIO 17.5; CREATININE SERUM 0.4 mg/dL (0.6-1.4); GLOM FILT RATE Estimated 122.3 mL/min (>60); MAGNESIUM 1.5 mg/dL (1.6-3.0); POTASSIUM 3.8 mmol/L (3.5-5.1)
[2017-07-01 09:20] LABS: BUN/CREATININE RATIO 21.66; CALCIUM SERUM 9.2 mg/dL (8.4-10.2); CREATININE SERUM 0.6 mg/dL (0.6-1.4); MAGNESIUM 1.5 mg/dL (1.6-3.0); POTASSIUM 4.4 mmol/L (3.5-5.1)
[2017-07-01] MEDS ORDERED: PERCOCET10 PO (15:05)
[2017-07-01] MEDS ORDERED: NICOTINE1 EAC1 TD (15:06)
[2017-07-01] MEDS ORDERED: BAYER ASPIRIN325 M1 PO (15:06)
[2017-07-01] MEDS ORDERED: PREDNISONE10 M1 (15:06)
[2017-07-01] MEDS ORDERED: MAG-OX 400400 M1 PO (15:12)
== END 2017-07-01 18:23 | DRG 467 ==
LOC: CED 08:42 → C4B 12:56 → CED 12:56 → C4B 14:37 → C2A 14:37 → C4B 06-28 07:36 → C2A 06-30 07:05
PROVIDERS: Internal Medicine; Orthopaedic Surgery
PROC: 0SW9XJZ Revision of Synthetic Substitute in Right Hip Joint, External Approach (ICD-10-PCS; principal; 2017-06-27 09:30)
PROC: 0SW90JZ Revision of Synthetic Substitute in Right Hip Joint, Open Approach (ICD-10-PCS; 2017-06-28 14:00)
PROC: 05H633Z Insertion of Infusion Device into Left Subclavian Vein, Percutaneous Approach (ICD-10-PCS; 2017-06-29)
PROC: B547ZZA Ultrasonography of Left Subclavian Vein, Guidance (ICD-10-PCS; 2017-06-29)
DX: T84.020A Dislocation of internal right hip prosthesis, initial encounter (principal); F10.239 Alcohol dependence with withdrawal, unspecified; E83.42 Hypomagnesemia; Y79.2 Prosthetic and other implants, materials and accessory orthopedic devices associated with adverse incidents; K21.9 Gastro-esophageal reflux disease without esophagitis; F32.9 Major depressive disorder, single episode, unspecified; Z96.641 Presence of right artificial hip joint; F17.210 Nicotine dependence, cigarettes, uncomplicated; W17.89XA Other fall from one level to another, initial encounter; Y93.31 Activity, mountain climbing, rock climbing and wall climbing; L23.7 Allergic contact dermatitis due to plants, except food
CPT/HCPCS: 73501; 76000; 80048; 80053; 80307; 81003; 83735; 84439; 84443; 85025; 85027; 86592; 94760; 97116; 97162; 97530; 99284; G8978-GP; G8979-GP; J0330; J0690; J1100; J1170; J1650; J2250; J2405; J3010; J3370; J3411; J3475; J7042

== ENCOUNTER 2017-07-16 16:40 | Inpatient (IN) | payer OTHER ==
[~2017-07-16] VITALS: Ht 157.5 cm; Wt 61.2 kg
--- NOTE | ~2017-07-16 | HP ---
Unit #: [id number] #: [id number] Patient: ELVIRA GARVIN [id number] [facility] [address] [place] [address] [id number] I MR#: [id number] NAME: ELVIRA GARVIN. ROOM: [facility] Age: 51 Sex: F Admission Date: 07/16/2017 : 1965 Attending Physician: Hector Lang M.D. Admitting Physician: Hector Lang M.D. Primary Care Physician: Primary Care Physician No HISTORY AND PHYSICAL HISTORY OF PRESENT ILLNESS The patient is a 51-year-old female who has been admitted to [facility] for alcohol detox. PAST MEDICAL HISTORY 1. Alcohol withdrawal. 2. Pancreatitis. 3. GI bleed. 4. GERD. 5. Depression. 6. Severe ulcerative esophagitis. PAST SURGICAL HISTORY 1. EGD. 2. Hip replacement. 3. Right hip ORIF on June 28, 2017. SOCIAL HISTORY Tobacco and alcohol use. FAMILY HISTORY Alcohol abuse. REVIEW OF SYSTEMS CONSTITUTIONAL: Patient denies fever or chills. HEENT: Denies sore throat, ear pain or runny nose. CARDIOVASCULAR: Denies chest pain, irregular heart rhythm or palpitations. CHEST: Denies shortness of breath or cough. No hemoptysis. GASTROINTESTINAL: Denies nausea, vomiting, diarrhea or chronic constipation. ENDOCRINE: Denies increased thirst or urination. Denies any recent weight loss or weight gain. GENITOURINARY: Denies dysuria, frequency, or hematuria. SKIN: Denies any rashes. HEMATOLOGIC: Denies increased bleeding or bruising. MUSCULOSKELETAL: Denies hot, swollen joints. No generalized muscle pain. NEUROLOGIC: Denies problems with speech, vision, numbness, tingling. Denies loss of bowel or bladder control. PHYSICAL EXAMINATION GENERAL: Patient is awake, alert, in no acute distress. VITAL SIGNS: Temperature 98.3, heart rate 89, respirations 16, blood pressure 149/99. Unit #: [id number] #: [id number] Patient: ELVIRA GARVIN HEIGHT: 5 feet 2. WEIGHT: 135 pounds. HEENT: Head is atraumatic, normocephalic. Pupils equal, round and reactive. Extraocular movements are intact. No drainage from ears or nares. NECK: Supple. Trachea is midline. HEART: Regular rate and rhythm. LUNGS: Clear. ABDOMEN: Soft, nontender, nondistended. : Not done. SKIN: Warm, dry without any unusual rashes or lesions. She does have right hip incision with luis armando, clean, dry, intact. No drainage. NEUROLOGICAL: Patient is within normal limits. Cranial nerves II through XII intact. No focal deficits. Sensory and motor functioning grossly normal. Moves all extremities well. Coordination, gait normal. Deep tendon reflexes intact. IMPRESSION Psychiatric admission. RECOMMENDATIONS PSYCHIATRIC: Will be per psychiatry. MEDICAL: I see no contraindication to participate in facility's activities. MEDICAL PROGNOSIS Fair. MEDICAL CONDITION Stable. Dictated by... Tri Uribe A.P.R.N. for Mike Arnold M.D. AM/hema TD: 07/17/2017 16:34 JOB #: [id number] HISTORY AND PHYSICAL Page 1 of 1 X Tri Uribe POULTRY SEXER X HISTORY AND PHYSICAL
--- NOTE | ~2017-07-16 | PN ---
Unit #: [id number] #: [id number] Patient: EVLIRA GARVIN [id number] [facility] [address] [place] [address] [id number] MR#: [id number] NAME: ELVIRA GARVIN. ROOM: [facility] Age: 51 Sex: F Admission Date: 07/16/2017 : 1965 Attending Physician: Hector Lang M.D. Admitting Physician: Hector Lang M.D. Primary Care Physician: Primary Care Physician Carolee ABDUL NOTES DATE 07/19/2017 DISCUSSION Upon today's assessment the patient was found attending group. She was slight cooperative and alert and oriented to person, place, time, date and situation. At this time, she still showed some bilateral fine tremor in the upper extremities. She no longer has tremor noted in the jaw mouth area. She still stated that she had some on and off again sweats but denied any further signs and symptoms of withdrawal at this time. She reports that she is still very concerned and a bit upset regarding not being able to get ahold of her boyfriend whom would be the person that picks her up from this facility. We will continue to monitor her q 15 minute checks for safety as well as continue to monitoring her via as alcohol detox protocol. Dictated by... ANALILIA Rivero/zackary TD: 07/23/2017 04:22 JOB #: [id number] DEMETRI ABDUL NOTES Page 1 of 1 X ANGELA BURGER PROGRESS NOTE
--- NOTE | ~2017-07-16 | DS ---
Unit #: [id number] #: [id number] Patient: ELVIRA LINARES [id number] [facility] [address] [place] [address] [id number] I MR#: [id number] NAME: ELVIRA LINARES. ROOM: [facility] Age: 51 Sex: F Admission Date: 07/16/2017 : 1965 Discharge Date: 07/22/2017 Attending Physician: Hector Lang M.D. Primary Care Physician: Primary Care Physician No DISCHARGE SUMMARY Covering for Dr. Hector Lang REASON FOR HOSPITALIZATION Ms. Linares is a 51-year-old female, who was admitted for alcohol dependence and withdrawal. DIAGNOSTIC STUDIES Laboratory data, please see hospital chart. HOSPITAL COURSE Ms. Linares was admitted and placed on the alcohol detox protocol, and home medications were restarted. She was generally quiet and withdrawn during hospitalization, she denied suicidal or homicidal ideations, during the hospital stay, she safely completed withdrawal without incident and at this time was curtis for safety and denying suicidal or homicidal ideation. she will follow up with community mental health treatment resources as well as substance abuse resources postdischarge. DISCHARGE DIAGNOSES [place] I Alcohol dependence with withdrawal, uncomplicated. [place] II Deferred. [place] III [place] IV [place] V FOLLOWUP CARE Follow up will be with community mental health substance abuse treatment resources. DISCHARGE MEDICATIONS Continue with home medications, see medical record. CONDITION AT DISCHARGE Good. PROGNOSIS Fair. DIET AND ACTIVITY Unit #: [id number] #: [id number] Patient: ELVIRA LINARES Dictated by... Shayy Burger, ANALILIA for Charly Gutierrez/marcus TD: 07/26/2017 06:19 JOB #: [id number] DISCHARGE SUMMARY Page 1 of 1 X SHAYY BURGER X DISCHARGE SUMMARY
--- NOTE | ~2017-07-16 | PN ---
Unit #: [id number] #: [id number] Patient: ELVIRA LINARES [id number] [place] [address] [id number] I MR#: [id number] NAME: ELVIRA LINARES. ROOM: [facility] Age: 51 Sex: F Admission Date: 07/16/2017 : 1965 Attending Physician: Hector Lang M.D. Admitting Physician: Hector Lang M.D. Primary Care Physician: Primary Care Physician Carolee ABDUL NOTES DATE 07/21/[address] Hector Lang at [facility] DISCUSSION The patient was seen and assessed on July 21, 2017. Upon assessment today, Ms. Linares was found attending the AA meeting. She reports that she is looking forward to discharge tomorrow and no tremor was noted at this time upon examination. She reports that she was finally able to contact her significant other and found out where her car was located. So she plans to discharge and retrieve her car from the impound lot before continuing with followup plans/care. At this time, she denies suicidal or homicidal ideation and verbalizes no plan or intent. She denies auditory or visual hallucinations and no overt symptoms of psychosis were noted. Plan is to discharge tomorrow, 07/22, and followup with [facility] for a 28 to 30 day substance abuse residential center such as [facility]. Dictated by... ANALILIA Rivero TD: 07/23/2017 05:20 JOB #: [id number] [facility] PROGRESS NOTES Page 1 of 1 X ANGELA BURGER PROGRESS NOTE
--- NOTE | ~2017-07-16 | PN ---
Unit #: [id number] #: [id number] Patient: ELVIRA GARVIN [id number] [facility] [address] [place] [address] [id number] I MR#: [id number] NAME: ELVIRA GARVIN. ROOM: [facility] Age: 51 Sex: F Admission Date: 07/16/2017 : 1965 Attending Physician: Hector Lang M.D. Admitting Physician: Hector Lang M.D. Primary Care Physician: Primary Care Physician Carolee ABDUL NOTES DATE OF SERVICE: 07/20/2017 DISCUSSION Upon today's assessment, the patient was found attending groups. She immediately became tearful and began to cry and stated that she has been unable to get a hold of her significant other at this time. She said that she was able to contact his boss where he works and found out that his car had been impounded and nobody had heard from him since. The patient stated "all I had is in that car" and stated that she and her significant other had been living and sleeping in the vehicle as well as camping [place]. The patient at this time denied homicidal or suicidal ideation and voices no plan or intent. She denies auditory or visual hallucinations. No overt symptoms of psychosis were noted. Discharge planning was discussed with the patient and she stated that she would like to follow up with a 28 day residential facility such as [facility] or [facility] or a facility such as [facility]. At this time, she complains of minimal signs of withdrawal. There is still some mild tremor noted in the bilateral upper extremities. She denies any other symptoms of detox at this time and stated that she was starting to feel better. We will continue to monitor this patient with this [facility] alcohol detox protocol as well as q.15 minute checks for safety. Dictated by... Shayy Burger APRN for Charly Gutierrez/beverly TD: 07/22/2017 01:37 JOB #: [id number] DEMETRI ABDUL NOTES Page 1 of 1 X SHAYY BURGER PROGRESS NOTE
--- NOTE | ~2017-07-16 | CO ---
Unit #: [id number] #: [id number] Patient: ELVIRA GARVIN [id number] [place] [address] [id number] I MR#: [id number] NAME: ELVIRA GARVIN. ROOM: [facility] Age: 51 Sex: F Admission Date: 07/16/2017 : 1965 Attending Physician: Hector Lang M.D. Primary Care Physician: Primary Care Physician No CONSULTATION REPORT REASON FOR CONSULTATION [place] in her left hip. SUBJECTIVE The patient states that she had a left ORIF per Dr. Starr on 06/28/2017. The patient has been up and ambulating and denies any pain from her left hip. The patient has had luis armando since her procedure and has not had any drainage. She denies any nausea, vomiting, fever, or chills. OBJECTIVE GENERAL: The patient is a 51-year-old female, who is awake and alert, in no acute distress. VITAL SIGNS: Temperature is 98.3, heart rate 89, respirations 16, blood pressure 149/99. CHEST: Lungs are clear to auscultation bilaterally. No wheezes or rhonchi. CARDIOVASCULAR: S1 and S2. Regular rate and rhythm. ABDOMEN: Soft, nontender, nondistended. Bowel sounds positive in all four quadrants. SKIN: Warm, dry, and intact. She does have an incision on her left hip that is clean, dry, and intact with luis armando. ASSESSMENT Left hip luis armando, status post ORIF on 06/28/2017. PLAN At this time, it is okay to remove the luis armando and the patient is to follow up with Dr. Starr in 1 week. Dictated by... Tri Uribe A.P.R.N. for Mike Arnold M.D. AM/beverly TD: 07/17/2017 17:17 JOB #: [id number] Unit #: [id number] #: [id number] Patient: ELVIRA GARVIN CONSULTATION REPORT Page 1 of 1 X Tri Uribe APRN CONSULTATION REPORT
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
--- NOTE | ~2017-07-16 | PN ---
Unit #: [id number] #: [id number] Patient: ELVIRA LINARES [id number] [facility] [address] [place] [address] [id number] MR#: [id number] NAME: ELVIRA LINARES. ROOM: P178 Age: 51 Sex: F Admission Date: 07/16/2017 : 1965 Attending Physician: Hector Lang M.D. Admitting Physician: Hector Lang M.D. Primary Care Physician: Primary Care Physician No DEMETRI PROGRESS NOTES DATE 07/18/2017 DISCUSSION Upon assessment Ms. Linares was found attending group with her peers. She stated that she felt that it is better today or "a bit better." She stated that she had less tremor than yesterday but it was still noted that she had tremor in the jaw and mouth area. She complains of diaphoresis and stated that today she had had no nausea, vomiting. She denies suicidal or homicidal ideations and voiced no plan or intent. She denied auditory or visual hallucination but and no overt symptoms of psychosis was noted. She reports that she continues to have issues getting into contact with boyfriend and deciding where they will stay post discharge. PLAN Continue to monitor Ms. Linares with the alcohol detox protocol and q 15 minute checks for safety. Dictated by... ANALILIA Rivero/zackary TD: 07/22/2017 05:09 JOB #: [id number] [facility] PRO[facility] NOTES Page 1 of 1 X ANGELA BURGER PROGRESS NOTE
[~2017-07-16 16:40] MED LIST changes: +BAYER ASPIRIN325 M1 PO; +BUSPAR15 M1 PO; +FOLIC ACID1 MG PO; +MAG-OX 400400 M1 PO; +MULTI VITAMIN1 EACH PO; +NEURONTIN600 MG PO; +NICOTINE1 EAC1 TD; +PANTOPRAZOLE SO40 MG PO; +PERCOCET10 PO; +PREDNISONE10 M1
== END 2017-07-22 15:30 | disposition home or self-care (01) | DRG 897 ==
LOC: P1E 20:43
DX: F10.230 Alcohol dependence with withdrawal, uncomplicated (principal); K22.10 Ulcer of esophagus without bleeding; K21.9 Gastro-esophageal reflux disease without esophagitis; Z81.8 Family history of other mental and behavioral disorders; Z81.1 Family history of alcohol abuse and dependence; Z96.649 Presence of unspecified artificial hip joint
CPT/HCPCS: 86592